=== PATIENT | male | born 1955 | race Caucasian/White ===

== ENCOUNTER 2017-01-13 05:18 | Inpatient (IN) | payer OTHER ==
[2016-12-18 14:39] VITALS: BMI 36.0
--- NOTE | 2016-12-18 15:26 | PAT Medication Instructions ---
Service Date Dec 18, 2016. Current Home Medication List Aspirin (Aspirin Ec), 81 MG PO QAM Carvedilol (Coreg), 3.125 MG PO BID Gabapentin (Neurontin), 300 MG PO TID Metformin Hcl (Glucophage), 500 MG PO BID Nitroglycerin (Nitrostat), 0.4 MG UT PRN Oxycodone/Acetaminophen 5MG/325MG (Percocet 5MG/325MG), 1-2 TABLETS PO Q6H PRN for Pain Prasugrel Hcl (Effient), 10 MG PO QAM Simvastatin (Zocor), 40 MG PO QPM Medication Instructions For Your Scheduled Surgery - Check with surgeon/diesel plant operator for instructions: Prasugrel Hcl (Effient), 10 MG PO QAM - Hold the following medications 48 hours prior to surgery: Metformin Hcl (Glucophage), 500 MG PO BID - Take the following medications the morning of surgery with a sip of water: Nitroglycerin (Nitrostat), 0.4 MG UT PRN Gabapentin (Neurontin), 300 MG PO TID Carvedilol (Coreg), 3.125 MG PO BID Aspirin (Aspirin Ec), 81 MG PO QAM (okay to continue per surgeon) Oxycodone/Acetaminophen 5MG/325MG (Percocet 5MG/325MG), 1-2 TABLETS PO Q6H PRN for Pain (okay to take up to 4 hours prior to surgery if needed) - Take the following medications as scheduled the night before surgery: Simvastatin (Zocor), 40 MG PO QPM Nitroglycerin (Nitrostat), 0.4 MG UT PRN Gabapentin (Neurontin), 300 MG PO TID Carvedilol (Coreg), 3.125 MG PO BID Oxycodone/Acetaminophen 5MG/325MG (Percocet 5MG/325MG), 1-2 TABLETS PO Q6H PRN for Pain If you have any questions please call us at [phone] (Magdalena Miranda PA-C ) or [phone] or [phone]
[2016-12-18 16:17] LABS: URINE APPEARANCE CLEAR (CLEAR); URINE BILIRUBIN NEG (NEG); URINE COLOR YELLOW; URINE NITRITE NEG (NEG); URINE PH 5.5 (4.5-7.5); URINE SPECIFIC GRAVITY 1.031 (1.000-1.030); UROBILINOGEN NEG (NEG)
[2016-12-18 16:20] LABS: MANUAL MICROSCOPIC REQUIRED? NO; REVIEW REQ? NO
--- NOTE | 2017-01-09 09:05 | HISTORY & PHYSICAL EXAMINATION ---
DATE OF ADMISSION: 01/13/2017 HISTORY OF PRESENT ILLNESS: The patient presents to our office with complaints of bilateral leg pain, right greater than left, as well as difficulty walking any distance. He reports his legs will fatigue and become very tired and painful if he stands or walks any period of time. If he stops and sits for a period of time, his symptoms resolve. He can only walk about 5 minutes before he must stop and sit down. He has trialed epidural injections with Dr. Farah who recently fell the degree of his stenosis as well as the fact that he was on a blood thinner were not worth attempting an injection. He was, therefore, sent to our office for a surgical opinion. He denies bowel or bladder dysfunction. He does have a history of vascular disease, did have ultrasounds of bilateral legs, and was told there were no issues with this. MEDICAL HISTORY: Significant for peripheral vascular disease, pulmonary nodule, neurogenic claudication, [place] with cardiac stenting 12/2015, type 2 diabetes, hyperlipidemia, COPD, asthma, psoriasis and cough. ALLERGIES: INCLUDE IVP DYE, LISINOPRIL AND ATORVASTATIN. MEDICATIONS: Include Carvedilol 3.125 mg twice a day, metformin 500 mg twice a day, Effient 10 mg a day, aspirin 81 mg a day, simvastatin 40 mg a day, oxycodone 5/325 q. 6 hours p.r.n., gabapentin 300 mg at bedtime, Nitrostat. 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 He is still working. He is . He is a former smoker. Alcohol not listed. FAMILY HISTORY: Noncontributory. REVIEW OF SYSTEMS: Significant for bilateral leg weakness and pain and back pain as well as shortness of breath. PHYSICAL EXAMINATION: HEENT: Speech appropriate. CARDIOPULMONARY: No gross abnormalities. ABDOMEN: Soft, nondistended. GENITOURINARY: Deferred. NEUROLOGIC: Cranial nerves II-XII grossly intact. MUSCULOSKELETAL: He moves slowly around the room, favoring the right side. He has 4 to 4+/5 right anterior tibialis, otherwise strength is intact. Internal rotation of the left and right hip causes groin pain. Gait is stable. No evidence of ankle clonus. ASSESSMENT: Severe spinal stenosis L3-L4, L4-L5. PLAN: At this point in time, he is noting more and more difficulty with walking. He is interested in pursuing surgical intervention. Surgery would require lumbar decompression with instrumented fusion L3-L4, L4-L5, and L5-S1. Risks, benefits, pros, cons and alternatives were outlined in detail. The patient would like to proceed with the above-mentioned surgical planning.
[~2017-01-13] VITALS: Ht 170.2 cm; Wt 105.0 kg
[2017-01-13] VITALS (11 sets, daily range): BP systolic 111–168; BP diastolic 71–94; PULSE 60–75; TEMP 35.9–36.6; O2SAT 94–99; Ht 170.2 cm; Wt 105.0 kg
[~2017-01-13 05:18] MED LIST: ASPI81TA28 PO; CARV3.122 PO; GABA-113 PO; GLC/500 PO; NTRGSL/4 UT; OXYC-57 PO; PRAS1TAB6 PO; SIMV40TA2 PO
[2017-01-13] MEDS ORDERED: LACTATED RINGER'S 1000ML IV SCH (06:00)
[2017-01-13] MEDS ORDERED: LACTATED RINGER'S 1000ML 1,000 ML IV SCH (06:00)
[2017-01-13] MEDS ORDERED: CEFAZOLIN 2000 MG/60 ML D5W 60 ML IV SCH (06:00)
[2017-01-13] MEDS ORDERED: FENTANYL CITRATE INJ 50 MCG/1 ML 2 ML VIAL ONE ×3 (06:38→08:57)
[2017-01-13] MEDS ORDERED: MIDAZOLAM HCL 1 MG/ML 2ML VIAL ONE (06:38)
[2017-01-13] MEDS ORDERED: BACITRACIN 50000 UNIT VIAL ONE (06:57)
[2017-01-13] MEDS ORDERED: BUPIVACAINE/EPINEPHRINE 0.5% MPF 1:200,000 30 ML VIAL ONE (06:57)
[2017-01-13] MEDS ORDERED: SODIUM CHLORIDE 0.9% PF 50 ML VIAL ONE (06:57)
--- NOTE | 2017-01-13 07:22 | History & Physical Bridge Note ---
H&P Re-Evaluation Bridge Note: I have examined the patient, reviewed the History & Physical and in the interval since the performance of the History & Physical I have noted the following changes of clinical significance: No changes noted
[2017-01-13] MEDS ORDERED: HYDROmorphone INJ 1 MG/ML SYR IV PRN (07:45)
[2017-01-13] MEDS ORDERED: ATROPINE SULFATE 0.1 MG/ML 5ML SYR IV PRN (07:45)
[2017-01-13] MEDS ORDERED: FENTANYL CITRATE INJ 50 MCG/1 ML 2 ML VIAL IV PRN (07:45)
[2017-01-13] MEDS ORDERED: EpHEDrine SULFATE INJ 50 MG/ML AMP IV PRN (07:45)
[2017-01-13] MEDS ORDERED: ONDANSETRON INJ 2 MG/ML 2 ML VIAL IV PRN ×2 (07:45→09:45)
[2017-01-13] MEDS ORDERED: HYDROmorphone INJ 2 MG/ML SYR/VIAL ONE ×2 (08:08→09:36)
[2017-01-13] MEDS ORDERED: ROCURONIUM BROMIDE 10 MG/ML 5 ML VIAL ONE (08:23)
[2017-01-13] MEDS ORDERED: LIDOCAINE HCL 2% 2 ML VIAL (20MG/ML) ONE (08:23)
[2017-01-13] MEDS ORDERED: PHENYLEPHRINE 100MCG/ML 5ML SYR ONE (08:23)
[2017-01-13] MEDS ORDERED: DEXAMETHASONE SOD INJ 4 MG/ML VIAL ONE (08:23)
[2017-01-13] MEDS ORDERED: PROPOFOL IV EMULSION 10 MG/ML 20 ML VIAL IV ONE (08:23)
[2017-01-13] MEDS ORDERED: FLOSEAL HEMOSTATIC MATRIX 10ML TOP ONE (09:27)
[2017-01-13] MEDS ORDERED: SODIUM CHLORIDE 0.9% 1000ML 1,000 ML IV SCH (09:32)
--- NOTE | 2017-01-13 09:32 | [facility] Post Operative Brief Note ---
Immediate Operative Summary Operative Date Jan 13, 2017. Pre-Operative Diagnosis severe spinal stenosis L3-4, L4-5 Post-Operative Diagnosis severe spinal stenosis L3-4, L4-5 Procedure(s) Performed L3-L5 Lumbar Laminectomy, Decompression; L3-S1 Posterolateral Fusion with Instrumentation; Interbody Fusion with application of Interbody Cage L5-S1; Bone Morphogenetic Protein; Application of Taylor Allograft Surgeon Dr. Marques Kumar Comprehensive Ophthalmologist Surgeon(s) Yana Vega PA-C Estimated Blood Loss 350ML Findings stenosis Specimens none per surgeon Dr. Hema Kumar
--- NOTE | 2017-01-13 09:37 | DIAGNOSTIC IMAGING REPORT ---
LUMBAR SPINE, INTRAOPERATIVE FLUOROSCOPY HISTORY: L3-S1 decompression and fusion. FLUOROSCOPY TIME: 20 seconds. FINDINGS: Intraoperative fluoroscopy was provided for the lumbar spine. 2 fluoroscopic spot images were obtained. Posterior decompression and fusion from L3 through S1 with pedicle screws and rods. The hardware appears intact. IMPRESSION: Fluoroscopy provided for a L3-S1 posterior decompression and fusion. Electronically signed by: Jason Moreno M.D. 01/13/2017 9:36 AM Dictated Date/Time: 01/13/2017 9:35 AM
[2017-01-13] MEDS ORDERED: NEOSTIGMINE METHYLSULFATE 1 MG/ML 10ML VIAL ONE (09:39)
[2017-01-13] MEDS ORDERED: EpHEDrine SULFATE 50MG/5ML SYR ONE (09:39)
[2017-01-13] MEDS ORDERED: GLYCOPYRROLATE INJ 0.2 MG/ML VIAL ONE (09:39)
[2017-01-13] MEDS ORDERED: ONDANSETRON INJ 2 MG/ML 2 ML VIAL ONE (09:39)
[2017-01-13] MEDS ORDERED: NITROGLYCERIN 0.4 MG SL PER TAB CHARGE UT SCH (09:45)
[2017-01-13] MEDS ORDERED: LORAZEPAM INJ 0.5 MG in SYRINGE 0 ML IV PRN (09:45)
[2017-01-13] MEDS ORDERED: DC PCA PRN (09:45)
[2017-01-13] MEDS ORDERED: BISACODYL 10 MG SUPP PR PRN (09:45)
[2017-01-13] MEDS ORDERED: MAGNESIUM HYDROXIDE SUSP 30 ML UDC PO PRN (09:45)
[2017-01-13] MEDS ORDERED: FAMOTIDINE 20 MG TAB PO PRN (09:45)
[2017-01-13] MEDS ORDERED: SOD PHOSPHATE/SOD BIPHOSPHATE ENEMA 132 ML BTL PR PRN (09:45)
[2017-01-13] MEDS ORDERED: DO NOT ADMINISTER PNEUMOCOCCAL VACCINE PRN ×2 (09:45)
[2017-01-13] MEDS ORDERED: METOCLOPRAMIDE HCL INJ 5 MG/ML 2 ML VIAL IV PRN (09:45)
[2017-01-13] MEDS ORDERED: ALUMINUM/MAGNESIUM SUSP 30 ML UDC PO PRN (09:45)
[2017-01-13] MEDS ORDERED: ACETAMINOPHEN IV 100 ML IV PRN (09:45)
[2017-01-13] MEDS ORDERED: hydrOXYzine HCL 25 MG TAB PO PRN (09:45)
[2017-01-13] MEDS ORDERED: PROMETHAZINE HCL INJ 12.5 MG in SODIUM CHLORIDE 0.9% 50ML 50 ML IV PRN (09:45)
[2017-01-13] MEDS ORDERED: NALOXONE HCL 0.4 MG/1 ML VIAL/CARP IV PRN (09:45)
[2017-01-13] MEDS ORDERED: DO NOT ADMINISTER FLU VACCINE PRN ×3 (09:45)
[2017-01-13] MEDS ORDERED: HYDROmorphone HCL 0.5MG/ML 50 ML CASSETTE ONE (09:50)
[2017-01-13] MEDS ORDERED: PHARMACY GLYCEMIC MGMT CONSULT PRN (10:36)
--- NOTE | 2017-01-13 10:43 | Anesthesiology Progress Note ---
Anesthesia Post Op Note Date & Time Jan 13, 2017 at 10:43 Vital Signs Pain Intensity: 0 Vital Signs Past 12 Hours Date Time Temp Pulse Resp B/P Pulse Ox O2 Delivery O2 Flow Rate FiO2 01/13/17 10:30 36.6 62 16 145/83 98 Nasal Cannula 4 01/13/17 10:20 60 16 143/83 97 Nasal Cannula 4 01/13/17 10:10 57 16 149/79 100 Mask 10 01/13/17 10:00 60 16 156/89 99 Mask 10 01/13/17 09:52 36.8 83 16 155/76 96 10 01/13/17 05:44 36.6 63 20 168/94 96 Room Air Notes Mental Status: alert / awake / arousable, participated in evaluation Pt Amnestic to Procedure: Yes Nausea / Vomiting: adequately controlled Pain: adequately controlled Airway Patency, RR, SpO2: stable & adequate BP & HR: stable & adequate Hydration State: stable & adequate Anesthetic Complications: no major complications apparent
--- NOTE | 2017-01-13 11:35 | Pharmacy Progress Note ---
Glycemic Control Intl Consult Date of Service Jan 13, 2017. Scope Glycemic Pharmacist consulted by Dr Kumar on 01/13/17 for glycemic control and to write orders per [facility] inpatient glycemic control protocol Objective Weight (Kilograms): 105.000 Accuchecks BSG (last 24hrs): Test 01/13/17 05:39 01/13/17 09:57 Bedside Glucose 109 mg/dl (70-99) 145 mg/dl (70-99) Recent Pertinent Medications Outpatient Anti-diabetic Regimen: * Metformin 500 mg PO BIDM * A1c unknown Risk Factors for Insulin Resistance: * Steroids * Recent Surgery * Diet Assessment & Plan ASSESSMENT: * 61 yo diabetic M admitted with spinal stenosis, POD #0 * No recent A1c available to assess outpatient glycemic control; only on Metformin per medication records * Expect BSGs to rise due to stress of surgery and dexamethasone IV dosing (12 mg IV intraop + 3 post-op doses) * Initiate wt based Novolog (stress of 2) * Add additional check overnight due to possible steroid-induced hyperglycemia * Give Lantus X 1 if BSG >180 mg/dL * ADA & AACE recommend a goal blood sugar range 140-180 mg/dl for the majority of critically ill & non-critically ill patients. However, more stringent targets may be selected in individual cases. To facilitate optimal wound healing , tighten goal range to 110-140 mg/dL. PLAN FOR INPATIENT GLYCEMIC CONTROL: * Hold outpatient oral diabetes medications * Basal insulin with LANTUS SQ 10 units IF BSG >180 mg/dL * Correctional Insulin with NOVOLOG per scale ACHS PLUS 0200 check * Goal Range: Low 110 mg/dL - High 140 mg/dL * Correction Factor: 25 mg/dL/unit * Nutritional / Prandial insulin per carb ratio of 1 unit per 9 grams CHO consumed * A1c added to AM labs * Please note that the plan above was derived based on current level of insulin resistance and hospital stress. These recommendations are appropriate for inpatient admission only. Plan of care upon discharge will need to be reassessed to avoid potential outpatient hypo/hyperglycemia. Thank you.
--- NOTE | 2017-01-13 11:40 | OPERATIVE REPORT ---
DATE OF OPERATION: 01/13/2017 PREOPERATIVE DIAGNOSIS: Spinal stenosis. POSTOPERATIVE DIAGNOSIS: Same. PROCEDURES PERFORMED: 1. Revision decompression, medial facetectomy and foraminotomy L2-3, L3-4, L4-5, L5-S1. 2. Posterior spinal fusion L3-4, L4-5, L5-S1. 3. Placement posterior segmental instrumentation using Orthros rods and screws as well as a crosslink L3-4, L4-5, L5-S1. 4. Interbody fusion L5-S1. 5. Placement of PEEK cage 14 x 26 at L5-S1. 6. Placement of locally harvested morcellized autograft posterior gutters. 7. Placement of Infuse collagen sponge combined with Mastergraft in Taylor bone grafting in interbody space. SURGEON: Dr. Marques Kumar. ANALYTICAL STATISTICIAN: Yana Vega PA-C. Due to the complex nature of the procedure, the entire surgery was performed with the data assistant of JATIN Paris. The assistant manager pt, under direct supervision, was involved in the actual performance of all aspects of the surgical procedure including hemostasis, tissue retraction and incision, instrument management, patient positioning, and wound closure. ANESTHESIA: General. DISPOSITION: The patient awakened and taken to PACU in stable condition. HISTORY OF PATIENT'S PROBLEMS: A 61-year-old male who presents with above-mentioned diagnosis. After failing an extensive course of nonoperative care, elected to undergo the above-mentioned procedure. Risks, benefits, pros, cons, and alternatives were outlined in detail preoperatively. DESCRIPTION OF PROCEDURE: The patient was met preoperatively, case discussed and all questions were addressed. At that point, the patient was taken back to operative suite and after undergoing successful general endotracheal intubation by department of anesthesia, was placed in prone position on Fritz table atop the Arpan frame. All bony prominences were well padded and the eyes were inspected to ensure there was no external pressure placed upon them. At this point, lumbar spine was prepped and draped in normal sterile fashion. Sharp dissection with the assistance of Bovie cautery performed down to and exposing the lamina and transverse processes of L3, L4, L5 and sacral ala bilaterally. From a caudal to cephalad fashion, a revision complete laminectomy of L5, L4, L3 and partial laminectomy of L2 was performed addressing severe lateral recess foraminal disease. Pedicle screws then placed in L3, L4, L5 and S1 levels bilaterally with assistance of fluoroscopy and appropriate size jennifer provisionally placed. Through a transforaminal approach on the right, a complete discectomy of L5-S1 was performed, endplates curetted to subcortical bleeding bone and a 14 x 26 mm PEEK cage filled with Taylor bone grafting tapped into position. The rods were then compressed, locked into final position bilaterally, crosslink locked into position. The transverse processes of L3, L4, L5 and sacral ala burred to subcortical bleeding bone. Infuse collagen sponge combined with Mastergraft and locally harvested morcellized autograft was placed in the posterior gutters. A 7 flat LOLA drain was inserted. Incision was closed with #1 Vicryl in the fascia, 2-0 Vicryl subcutaneously, 4-0 Monocryl for final skin closure. Steri-Strips and sterile dressing was placed. The patient was awakened and taken to PACU in stable condition. I attest to the content of the Intraoperative Record and any orders documented therein. Any exceptio ns are noted below.
[2017-01-13] MEDS ORDERED: GLUCOSE 10 TABS/TUBE PO PRN (11:45)
[2017-01-13] MEDS ORDERED: GLUCAGON FOR INJ 1 MG VIAL SQ PRN (11:45)
[2017-01-13] MEDS ORDERED: GLUCOSE 40% GEL 15 GM TUBE PO PRN (11:45)
[2017-01-13] MEDS ORDERED: DEXTROSE 50% 50 ML SYR IV PRN (11:45)
[2017-01-13] MEDS: LACTATED RINGER'S 1000ML 1,000 ML IV SCH ×3 (12:38→22:32)
[2017-01-13] MEDS: INSULIN ASPART 100 UNITS/ML 3 ML PEN SC SCH ×3 (12:58→21:50)
[2017-01-13] MEDS: GABAPENTIN 300 MG CAP PO SCH ×2 (14:07→21:29)
[2017-01-13] MEDS: HYDROmorphone HCL 0.5MG/ML 50 ML CASSETTE IV PRN ×2 (15:02→22:54)
[2017-01-13] MEDS: CEFAZOLIN IV 2,000 MG in DEXTROSE 5% 50ML 50 ML IV SCH ×2 (15:42→23:42)
[2017-01-13] MEDS: DEXAMETHASONE INJ 6 MG in SYRINGE 0 ML IV SCH ×2 (15:42→23:42)
[2017-01-13] MEDS ORDERED: RXC5 PO (16:42)
--- NOTE | 2017-01-13 16:42 | Discharge Instructions ---
Discharge Instructions Date of Service Jan 13, 2017. Admission Reason for Admission: Spinal Stenosis Discharge Discharge Diagnosis / Problem: stenosis Discharge Goals Goal(s): Improve function Activity Recommendations Activity Limitations: per Instructions/Follow-up section . Instructions / Follow-Up Instructions / Follow-Up ACTIVITY RECOMMENDATIONS: SELF CARE INSTRUCTIONS AFTER THORACIC/LUMBAR FUSIONS 1. You may walk to your tolerance. It is good exercise for your legs and back. Expect some back and intermittent leg aches and pains. 2. You may perform "counter-top" level activities (make a sandwich, jamshid with a project, etc.). 3. No bending or lifting of more than 10 pounds or back twisting of any nature (roll like a log when turning in bed). 4. You may ride in a car for 20-30 minutes at a time. No driving until after your first visit with your doctor. 5. Frequent changes of position and restricting sitting to 30 minutes at a time will help limit the amount of back spasms and stiffness you may experience. 6. You may discontinue the use of ambulatory aids (cane, crutches, etc.) once your strength and confidence allow. 7. You may chlorinator the shower and let water strike your incision when you arrive home at least once daily. Do not take a tub bath, sit in a hot tub or go into a swimming pool until after your first recheck in the office. SPECIAL CARE INSTRUCTIONS: VERY IMPORTANT TO READ AND REVIEW A. Your surgical incision has been closed with a cosmetic suture under the skin that will dissolve in about 6 weeks. In 14 days, you can use a pair of clean scissors and cut the suture that is left outside of the skin at the ends of your incision. 1. The small skin tapes can be removed 7 days after surgery if they have not fallen off by that point. 2. You may keep the wound open to air as much as possible to promote healing after post-op day number 5 unless told otherwise by your doctor. 3. If you think the wound looks like it is becoming infected (redness or worsening drainage) and/or you are experiencing fever, chill or worsening back pain and muscle spasms, contact the office so that we may evaluate you as soon as possible. B. Complications are uncommon, but please contact us if you have any signs or symptoms of: 1. wound infection (fever higher than 102.5 degrees F, redness, separation of wound, drainage, or increasing pain from the incision) 2. blood clots in legs (pain, swelling, redness and warmth in legs) 3. urinary tract infection (fever higher than 102.5 degrees F, burning upon urination or increased frequency of urination) 4. nerve problems (inability to walk on your toes or heels, numbness, loss of bowel or bladder control) 5. any other symptoms that concern you C. Please call the office at if you have any concerns or questions about your operation or recovery. D. No smoking! Smoking drastically decreases the chance of a solid fusion. E. Do not take any anti-inflammatory medications (Indocin, Advil, Motrin, Aspirin, Naprosyn, etc.) as these may inhibit the chance of a solid fusion. Tylenol is okay to take for pain. MANAGING PAIN AFTER SPINAL SURGERY 1. Narcotic medication is intended for short-term use and will be provided for surgical pain. Surgical pain usually lasts for a period of 4-6 weeks. Narcotic medication includes Percocet, Vicodin, Darvocet, Tylenol #3 or Lortab. 2. Longer-term pain is more appropriately treated with non-narcotic medication such as Tylenol ES. 3. Muscle spasm is not appropriately treated with narcotics. Muscle relaxers such as Soma, Flexeril or Skelaxin can be used along with Tylenol ES. 4. Remember that we all live with some "aches and pains". This is not unusual or uncommon after an injury or as we get older. a. Back pain is expected and may include muscle spasms for 4 to 6 weeks after surgery. The pain should gradually improve. If the pain worsens for no apparent reason, please contact the office. b. Intermittent leg pain may also be experienced and should not be concerned about unless it worsens for no apparent reason. If so, please contact the office. 5. We will provide appropriate medication within the normal guidelines of their prescribed use. We will also be very cautious and aware of potential abuse and extended duration of patients' medication needs. a. Pain medications are for your comfort and to assist with sleep and rest so that the tissue can heal. They are not provided in order to return to normal activity and should not be used through the day. To do so or worsening pain at night can result from ongoing tissue damage and development of tolerance to the prescribed medicine. 6. Please allow 2-3 days to process refills. Prescriptions will not be mailed but must be picked up at the office. FOLLOW UP VISIT: Keep your scheduled follow-up appointment. Any questions, please call the office at . Current Hospital Diet Patient's current hospital diet: Diabetes Type 2 Diet Discharge Diet Recommended Diet: Regular Diet Procedures Procedures Performed: L3-L5 Lumbar Laminectomy, Decompression; L3-S1 Posterolateral Fusion with Instrumentation; Interbody Fusion with application of Interbody Cage L5-S1; Bone Morphogenetic Protein; Application of Taylor Allograft Pending Studies Studies pending at discharge: no Medical Emergencies . Who to Call and When: Medical Emergencies: If at any time you feel your situation is an emergency, please call 911 immediately. . Non-Emergent Contact Non-Emergency issues call your: Primary Care Provider . "Provider Documentation" section prepared by Marques Kumar. VTE Core Measure Inpt VTE Proph given/why not?: Nancy Aggarwal, SCD's
[2017-01-13] MEDS: CARVEDILOL 3.125 MG TAB PO SCH (21:30)
[2017-01-13] MEDS: DOCUSATE SODIUM/SENNA 50/8.6MG TAB PO SCH (21:30)
[2017-01-13] MEDS: SIMVASTATIN 40 MG TAB PO SCH (22:12)
[2017-01-14] MEDS ORDERED: INSULIN ASPART 100 UNITS/ML 3 ML PEN SC SCH (02:00)
[2017-01-14 03:40] VITALS: BP 134/71; PULSE 60; TEMP 36.6; O2SAT 96
[2017-01-14] MEDS: LACTATED RINGER'S 1000ML 1,000 ML IV SCH (05:32)
[2017-01-14] MEDS ORDERED: NALOXONE HCL 0.4 MG/1 ML VIAL/CARP IV PRN (06:00)
[2017-01-14] MEDS ORDERED: DC PCA ONE (06:00)
[2017-01-14] MEDS ORDERED: NURSING DECISION MEDICATION ORDER SCH (06:00)
[2017-01-14] MEDS ORDERED: HYDROmorphone INJ 0.5 MG/0.5 ML SYR IV PRN (06:00)
[2017-01-14] MEDS ORDERED: HYDROmorphone INJ 1 MG/ML SYR IV PRN (06:00)
[2017-01-14 06:34] LABS: BASO % 0.1 %; BASO ABS # 0.01 K/uL (0-0.2); COMPLETE YES; HEMATOCRIT 34.9 % (42-52); IG% 0.4 %; LYMPH % 6.2 %; LYMPH ABS # 0.91 K/uL (1.2-3.4); MEAN CELL VOLUME 86.6 fL (80-100); MEAN CORPUSCULAR HGB CONC 34.7 g/dl (32-36); MEAN PLATELET VOLUME 9.6 fL (7.4-10.4); MONO % 8.3 %; PLATELET COUNT 179 K/uL (130-400); RED BLOOD COUNT 4.03 M/uL (4.7-6.1); WHITE BLOOD COUNT 14.64 K/uL (4.8-10.8)
[2017-01-14 06:57] VITALS: BP 115/71; PULSE 60; TEMP 36.6; O2SAT 96
[2017-01-14 07:03] LABS: BUN/CREATININE RATIO 15.8 (10-20); CALCIUM 8.4 mg/dl (8.5-10.1); CREATININE 0.89 mg/dl (0.60-1.40); POTASSIUM 4.3 mmol/L (3.5-5.1)
[2017-01-14] MEDS: OXYCODONE HCL IR 5 MG TAB (IMMEDIATE RELEASE) PO PRN ×4 (07:32→23:10)
[2017-01-14] MEDS: DEXAMETHASONE INJ 6 MG in SYRINGE 0 ML IV SCH (07:36)
--- NOTE | 2017-01-14 07:51 | Anesthesiology Progress Note ---
Anesthesia Post Op Note Date & Time Jan 14, 2017 at 07:51 Vital Signs Pain Intensity: 8.0 Vital Signs Past 12 Hours Date Time Temp Pulse Resp B/P Pulse Ox O2 Delivery O2 Flow Rate FiO2 01/14/17 06:57 36.6 60 17 115/71 96 Room Air 01/14/17 03:40 36.6 60 18 134/71 96 Room Air 01/13/17 23:50 36.3 60 16 136/78 94 Room Air 01/13/17 23:30 95 Room Air 01/13/17 21:00 74 111/71 Notes Mental Status: alert / awake / arousable, participated in evaluation Pt Amnestic to Procedure: Yes Nausea / Vomiting: adequately controlled Pain: adequately controlled, see Notes Airway Patency, RR, SpO2: stable & adequate BP & HR: stable & adequate Hydration State: stable & adequate Anesthetic Complications: no major complications apparent Just had requested po analgesic, RN bringing.
[2017-01-14] MEDS: CARVEDILOL 3.125 MG TAB PO SCH ×2 (08:40→21:10)
[2017-01-14] MEDS: GABAPENTIN 300 MG CAP PO SCH ×3 (08:40→21:10)
[2017-01-14] MEDS: ASPIRIN 81 MG ECTAB PO SCH (08:40)
[2017-01-14] MEDS: LORAZEPAM 0.5 MG TAB PO PRN (08:44)
[2017-01-14] MEDS: ACETAMINOPHEN 500 MG TAB PO PRN (08:44)
[2017-01-14] MEDS: INSULIN ASPART 100 UNITS/ML 3 ML PEN SC SCH ×4 (08:48→21:14)
--- NOTE | 2017-01-14 11:08 | Pharmacy Progress Note ---
Glycemic Control: Progress Nt Date of Service Jan 14, 2017. Scope Glycemic Pharmacist consulted by Dr Kumar on 01/13/17 for glycemic control and to write orders per [facility] inpatient glycemic control protocol. Objective Accuchecks BSG (last 24hrs): Test 01/13/17 11:50 01/13/17 16:47 01/13/17 20:45 01/14/17 01:51 Bedside Glucose 146 mg/dl (70-99) 174 mg/dl (70-99) 154 mg/dl (70-99) 167 mg/dl (70-99) Test 01/14/17 06:12 01/14/17 07:55 Random Glucose 156 mg/dl (70-99) Bedside Glucose 174 mg/dl (70-99) Laboratory Data (last 24hrs) Test 01/14/17 06:12 Anion Gap 5.0 mmol/L BUN/Creatinine Ratio 15.8 Blood Urea Nitrogen 14 mg/dl Creatinine 0.89 mg/dl Potassium Level 4.3 mmol/L Sodium Level 139 mmol/L White Blood Count 14.64 K/uL Red Blood Count 4.03 M/uL Hemoglobin 12.1 g/dL Hematocrit 34.9 % Mean Corpuscular Volume 86.6 fL Mean Corpuscular Hemoglobin 30.0 pg Mean Corpuscular Hemoglobin Concent 34.7 g/dl Platelet Count 179 K/uL Mean Platelet Volume 9.6 fL Neutrophils (%) (Auto) 85.0 % Lymphocytes (%) (Auto) 6.2 % Monocytes (%) (Auto) 8.3 % Eosinophils (%) (Auto) 0.0 % Basophils (%) (Auto) 0.1 % Neutrophils # (Auto) 12.45 K/uL Lymphocytes # (Auto) 0.91 K/uL Monocytes # (Auto) 1.21 K/uL Eosinophils # (Auto) 0.00 K/uL Basophils # (Auto) 0.01 K/uL Recent Pertinent Medications Outpatient Anti-diabetic Regimen: * Metformin 500 mg PO BIDM * A1c unknown Risk Factors for Insulin Resistance: * Steroids * Recent Surgery * Diet Assessment & Plan ASSESSMENT: 01/13/17 * 61 yo diabetic M admitted with spinal stenosis, POD #0 * No recent A1c available to assess outpatient glycemic control; only on Metformin per medication records * Expect BSGs to rise due to stress of surgery and dexamethasone IV dosing (12 mg IV intraop + 3 post-op doses) * Initiate wt based Novolog (stress of 2) * Add additional check overnight due to possible steroid-induced hyperglycemia * Give Lantus X 1 if BSG >180 mg/dL * ADA & AACE recommend a goal blood sugar range 140-180 mg/dl for the majority of critically ill & non-critically ill patients. However, more stringent targets may be selected in individual cases. To facilitate optimal wound healing , tighten goal range to 110-140 mg/dL. 01/14/17 * A1c with AM labs indicative of good glycemic control * Fasting BSG this AM 174 mg/dL * Patient did not require a Lantus dose even with steroids on board * I expect BSGs to continue to trend towards goal as steroid effects dissipate * Last dexamethasone dose scheduled for 0800 * Continue current Novolog coverage for breakfast, loosen starting with lunch PLAN FOR INPATIENT GLYCEMIC CONTROL: * Hold outpatient oral diabetes medications * Loosen Correctional Insulin with NOVOLOG per scale ACHS * Goal Range: Low 110 mg/dL - High 140 mg/dL * Correction Factor: 30 mg/dL/unit * Nutritional / Prandial insulin per carb ratio of 1 unit per 12 grams CHO consumed * A1c added to D/C instructions * Please note that the plan above was derived based on current level of insulin resistance and hospital stress. These recommendations are appropriate for inpatient admission only. Plan of care upon discharge will need to be reassessed to avoid potential outpatient hypo/hyperglycemia. Thank you.
[2017-01-14 11:58] LABS: ESTIMATED AVERAGE GLUCOSE 128 mg/dl; HA1C FLAG Normal (Normal)
--- NOTE | 2017-01-14 12:50 | PROGRESS NOTE ---
DATE: 01/14/2017 Postop day 1. Back pain controlled. Leg pain improved. Vital signs stable. T-max 36.6. LOLA drained 280 mL last night. Hematocrit this a.m. is 34.9. On exam, the patient is in chair at bedside. Demonstrates good strength to testing. Appears comfortable. ASSESSMENT: Status post lumbar decompression and fusion. PLAN: At this time, continue physical therapy, advance his bowel regimen and anticipate home possibly .
[2017-01-14 14:53] VITALS: BP 138/79; PULSE 67; TEMP 36.6; O2SAT 96
[2017-01-14 21:00] VITALS: BP 154/77; PULSE 65
[2017-01-14] MEDS: SIMVASTATIN 40 MG TAB PO SCH (21:10)
[2017-01-14] MEDS: DOCUSATE SODIUM/SENNA 50/8.6MG TAB PO SCH (21:10)
[2017-01-14 23:42] VITALS: BP 124/73; PULSE 66; TEMP 36.7; O2SAT 96
[2017-01-15] VITALS (7 sets, daily range): BP systolic 118–134; BP diastolic 69–83; PULSE 59–69; TEMP 36.4–36.9; O2SAT 96–98
[2017-01-15] MEDS: OXYCODONE HCL IR 5 MG TAB (IMMEDIATE RELEASE) PO PRN ×5 (03:31→21:07)
[2017-01-15] MEDS: POLYETHYLENE (MIRALAX) 17 GM PACK PO SCH ×3 (05:29→18:21)
[2017-01-15] MEDS: GABAPENTIN 300 MG CAP PO SCH ×3 (07:30→20:44)
[2017-01-15] MEDS: CARVEDILOL 3.125 MG TAB PO SCH ×2 (07:30→20:43)
[2017-01-15] MEDS: ASPIRIN 81 MG ECTAB PO SCH (07:30)
[2017-01-15] MEDS: LORAZEPAM 0.5 MG TAB PO PRN ×2 (07:30→23:54)
[2017-01-15] MEDS: INSULIN ASPART 100 UNITS/ML 3 ML PEN SC SCH ×4 (07:33→20:46)
--- NOTE | 2017-01-15 11:57 | Pharmacy Progress Note ---
Glycemic Control: Progress Nt Date of Service Jan 15, 2017. Scope Glycemic Pharmacist consulted by Dr Kumar on 01/13/17 for glycemic control and to write orders per [facility] inpatient glycemic control protocol. Objective Accuchecks BSG (last 24hrs): Test 01/14/17 12:06 01/14/17 16:35 01/14/17 20:38 01/15/17 06:52 Bedside Glucose 173 mg/dl (70-99) 167 mg/dl (70-99) 179 mg/dl (70-99) 169 mg/dl (70-99) Test 01/15/17 11:09 Bedside Glucose 116 mg/dl (70-99) HbA1c: Test 01/14/17 06:12 Hemoglobin A1c 6.1 % (4.5-5.6) H Recent Pertinent Medications Outpatient Anti-diabetic Regimen: * Metformin 500mg PO BIDM The patient is currently receiving: * Basal insulin: N/A, non indicated * Correctional Insulin: Novolog Correction per scale ACHS Goal Range: Low 110 mg/dL - High 140 mg/dL Correction Factor: 30 mg/dL/unit * Prandial insulin: Per carb ratio of 1 unit per 12 grams CHO consumed * Oral Agents: On hold post-op Risk Factors for Insulin Resistance: * Steroids * Recent Surgery * Diet Assessment & Plan ASSESSMENT: * 61yo T2DM with adequate degree of outpatient control per recent A1c * Reasonable for patient to resume previous outpatient regimen at discharge ( metformin) * Metformin held post-op and pt initiated on SQ insulin regimen. Reasonable to resume metformin at this time d/t: * Pt is tolerating PO * Renal function is stable and at baseline * Anticipate d/c tomorrow * ADA & AACE recommend a goal blood sugar range 140-180 mg/dl for the majority of critically ill & non-critically ill patients. However, more stringent targets may be selected in individual cases. Will utilize more stringent goal range of 110-140mg/dl for a well controlled diabetic and to facilitate healing post-operatively. PLAN FOR INPATIENT GLYCEMIC CONTROL: * Resume outpatient oral diabetes medication- metformin 500mg PO BIDM * Adjust NOVOLOG per scale ACHS or Q6hrs while NPO * Goal Range: Low 110 mg/dL - High 140 mg/dL * Correction Factor: 30 mg/dL/unit * Nutritional / Prandial insulin per carb ratio of 1 unit per 12 grams CHO consumed --> d/c CR when metformin resumed * Please note that the plan above was derived based on current level of insulin resistance and hospital stress. These recommendations are appropriate for inpatient admission only. Plan of care upon discharge will need to be reassessed to avoid potential outpatient hypo/hyperglycemia. Thank you.
[2017-01-15] MEDS: ACETAMINOPHEN 500 MG TAB PO PRN ×2 (12:41→23:54)
[2017-01-15] MEDS ORDERED: KETOROLAC TROMETHAMINE 30 MG/ML VIAL IV PRN (12:45)
--- NOTE | 2017-01-15 13:55 | PROGRESS NOTE ---
DATE: 01/15/2017 SUBJECTIVE: Postop day #2. Back pain is controlled. Leg pain improved. Vital signs stable. T-max 36.9. LOLA drained 10 mL. OBJECTIVE: On exam, the patient is in chair at bedside. Demonstrates good strength to testing and is comfortable. ASSESSMENT: Status post multilevel lumbar decompression and fusion. PLAN: At this time, will continue to advance his bowel regimen and physical therapy and anticipate discharge tomorrow. The patient understands and agrees.
[2017-01-15] MEDS: METFORMIN HCL 500 MG TAB PO SCH (18:21)
[2017-01-15] MEDS: DOCUSATE SODIUM/SENNA 50/8.6MG TAB PO SCH (20:44)
[2017-01-15] MEDS: SIMVASTATIN 40 MG TAB PO SCH (20:44)
[2017-01-15] MEDS ORDERED: NURSING VERBAL MED ORDER ONE (23:00)
[2017-01-16] MEDS: OXYCODONE HCL IR 5 MG TAB (IMMEDIATE RELEASE) PO PRN ×3 (02:52→14:06)
[2017-01-16] MEDS: INSULIN ASPART 100 UNITS/ML 3 ML PEN SC SCH ×2 (08:00→12:00)
[2017-01-16 08:12] VITALS: BP 122/75; PULSE 63; TEMP 36.5; O2SAT 97
[2017-01-16] MEDS: GABAPENTIN 300 MG CAP PO SCH ×2 (08:31→14:03)
[2017-01-16] MEDS: METFORMIN HCL 500 MG TAB PO SCH (08:31)
[2017-01-16] MEDS: ASPIRIN 81 MG ECTAB PO SCH (08:31)
[2017-01-16] MEDS: CARVEDILOL 3.125 MG TAB PO SCH (08:32)
[2017-01-16 09:58] VITALS: BP 148/80
[2017-01-16 10:52] VITALS: BP 122/75; PULSE 63; TEMP 36.5; O2SAT 97
--- NOTE | 2017-01-16 13:39 | DISCHARGE SUMMARY ---
DATE OF DISCHARGE: 01/16/2017. PRINCIPAL DIAGNOSIS: Spinal stenosis. HOSPITAL COURSE FOLLOWS: On 01/13/2017 the patient underwent lumbar decompression and fusion, tolerated this well and taken to the orthopedic floor postoperatively. Postop day #1, up and ambulatory, progressed to postop day #2. Postop day #3, pain improved nicely. LOLA drain decreasing well. Subsequently discharged home. Discharge orders and instructions can be found on the chart for further review.
== END 2017-01-16 14:43 | disposition home health service (06) | DRG 460 ==
LOC: ENRESERVTM → ENRESERVDT → C.ACU 05:18 → C.3E 07:30
PROVIDERS: ADMIT Orthopaedic Surgery Orthopaedic Surgery of the Spine; ATTEND Orthopaedic Surgery Orthopaedic Surgery of the Spine
PROC: 0SG1071 Fusion of 2 or more Lumbar Vertebral Joints with Autologous Tissue Substitute, Posterior Approach, Posterior Column, Open Approach (ICD-10-PCS; principal; 2017-01-13 07:45)
PROC: 0ST40ZZ Resection of Lumbosacral Disc, Open Approach (ICD-10-PCS; principal; 2017-01-13 07:45)
PROC: 0SG3071 Fusion of Lumbosacral Joint with Autologous Tissue Substitute, Posterior Approach, Posterior Column, Open Approach (ICD-10-PCS; principal; 2017-01-13 07:45)
PROC: 0SG30AJ Fusion of Lumbosacral Joint with Interbody Fusion Device, Posterior Approach, Anterior Column, Open Approach (ICD-10-PCS; principal; 2017-01-13 07:45)
PROC: 3E0V0GB Introduction of Recombinant Bone Morphogenetic Protein into Bones, Open Approach (ICD-10-PCS; principal; 2017-01-13 07:45)
PROC: 01NB0ZZ Release Lumbar Nerve, Open Approach (ICD-10-PCS; principal; 2017-01-13 07:45)
DX: M48.06 Spinal stenosis, lumbar region (principal); I73.9 Peripheral vascular disease, unspecified; I25.2 Old myocardial infarction; Z95.5 Presence of coronary angioplasty implant and graft; J44.9 Chronic obstructive pulmonary disease, unspecified; E11.9 Type 2 diabetes mellitus without complications; Z87.891 Personal history of nicotine dependence

== ENCOUNTER 2022-02-27 06:02 | Inpatient (IN) ==
--- NOTE | 2022-02-05 14:25 | PAT Medication Instructions ---
Medication Instructions Date of Service February 05, 2022 Home Medications Medication Instructions Recorded sildenafil 100 mg tablet 100 mg PO DAILY PRN #20 tab 10/05/21 tamsulosin 0.4 mg capsule 0.4 mg PO DAILY #90 cap 10/05/21 sildenafil 100 mg tablet 100 mg PO DAILY PRN tamsulosin 0.4 mg capsule 0.4 mg PO DAILY acetaminophen 500 mg tablet 1,500 mg PO Q6H PRN amlodipine 10 mg tablet 10 mg PO HS aspirin 81 mg tablet,delayed release 81 mg PO QAM budesonide-formoterol HFA 160 mcg-4.5 mcg/actuation aerosol inhaler (Symbicort) 2 puff INHALATION BID PRN carvedilol 12.5 mg tablet 12.5 mg PO HS metformin 500 mg tablet 500 - 1,000 mg PO BID methocarbamol 500 mg tablet 500 mg PO BID montelukast 10 mg tablet 10 mg PO QAM nitroglycerin 0.4 mg sublingual tablet (Nitrostat) 0.4 mg SUBLINGUAL UD PRN simvastatin 20 mg tablet 20 mg PO HS Continue as directed nitroglycerin 0.4 mg sublingual tablet (Nitrostat) 0.4 mg SUBLINGUAL UD PRN (if needed) ASK your prescriber and surgeon aspirin 81 mg tablet,delayed release 81 mg PO QAM DO NOT take the morning of surgery sildenafil 100 mg tablet 100 mg PO DAILY PRN metformin 500 mg tablet 500 - 1,000 mg PO BID methocarbamol 500 mg tablet 500 mg PO BID montelukast 10 mg tablet 10 mg PO QAM Take morning of surgery With a small sip of water, OTHERWISE NOTHING TO EAT OR DRINK AFTER MIDNIGHT: tamsulosin 0.4 mg capsule 0.4 mg PO DAILY acetaminophen 500 mg tablet 1,500 mg PO Q6H PRN (okay to take up to 4 hours prior to surgery if needed) budesonide-formoterol HFA 160 mcg-4.5 mcg/actuation aerosol inhaler (Symbicort) 2 puff INHALATION BID PRN (if needed) Take evening before surgery sildenafil 100 mg tablet 100 mg PO DAILY PRN (if needed) acetaminophen 500 mg tablet 1,500 mg PO Q6H PRN (if needed) amlodipine 10 mg tablet 10 mg PO HS budesonide-formoterol HFA 160 mcg-4.5 mcg/actuation aerosol inhaler (Symbicort) 2 puff INHALATION BID PRN (if needed) carvedilol 12.5 mg tablet 12.5 mg PO HS metformin 500 mg tablet 500 - 1,000 mg PO BID methocarbamol 500 mg tablet 500 mg PO BID simvastatin 20 mg tablet 20 mg PO HS Other Notes If you have any questions please call us at [phone] or [phone] or [phone] or [phone]
--- NOTE | 2022-02-06 13:35 | Anesthesiology Consultation ---
Date of Service February 06, 2022 Assessment & Plan (1) Encounter for pre-operative examination: - Check BSG AM DOS - COVID screening: Per assessment on 02/06: No known COVID-19 positive contacts or current COVID-19 related symptoms. Travel screen negative. Patient vaccinated. Patient was Covid positive 11/2021 > cold symptoms at time > resolved. Surgeon arranging preop COVID testing. Awaiting results. Awaiting 11/2021 Covid positive testing report ([facility]). - Awaiting surgeon-ordered cardiology preop evaluation (scheduled 02/07; Dr. English). Chart Review Chart Review: Patient seen in Pre Admission Testing Teaching & Discussion Pre-Anesthesia Teaching/Discussion Notes: Instructed NPO after midnight before surgery,except medications with 15 cc of water. Medication instructions provided according to the PAT guidelines. History Surgery Operation Date: 02/27/22 07:45 Proposed Procedures p L2-L3 Decompression Fusionm L3-S1 Hardware Removal Spinal Cord Morning - Marques Kumar DO Height/Weight Height: 5 ft 7 in Weight: 111.4 kg Allergies Allergy/AdvReac Type Severity Reaction Status Date / Time atorvastatin Allergy Unknown Per PCP Verified 02/05/22 14:25 records ibuprofen Allergy Unknown Facial Verified 02/05/22 14:25 swelling Iodinated Contrast Media Allergy Unknown Facial Verified 02/05/22 14:25 swelling lisinopril Allergy Unknown Hives Verified 02/05/22 10:44 Medications Home Medications Medication Instructions Recorded Confirmed Last Taken sildenafil 100 mg tablet 100 mg PO DAILY PRN #20 tab 10/05/21 02/05/22 Unknown tamsulosin 0.4 mg capsule 0.4 mg PO DAILY #90 cap 10/05/21 02/05/22 Unknown acetaminophen 500 mg tablet 1,500 mg PO Q6H PRN 02/05/22 02/05/22 Unknown amlodipine 10 mg tablet 10 mg PO HS 02/05/22 02/05/22 Unknown aspirin 81 mg tablet,delayed 81 mg PO QAM 02/05/22 02/05/22 Unknown release budesonide-formoterol HFA 160 2 puff INHALATION BID PRN 02/05/22 02/05/22 Unknown mcg-4.5 mcg/actuation aerosol inhaler (Symbicort) carvedilol 12.5 mg tablet 12.5 mg PO HS 02/05/22 02/05/22 Unknown metformin 500 mg tablet 500 - 1,000 mg PO BID 02/05/22 02/05/22 Unknown methocarbamol 500 mg tablet 500 mg PO BID 02/05/22 02/05/22 Unknown montelukast 10 mg tablet 10 mg PO QAM 02/05/22 02/05/22 Unknown nitroglycerin 0.4 mg sublingual 0.4 mg SUBLINGUAL UD PRN 02/05/22 02/05/22 Unknown tablet (Nitrostat) simvastatin 20 mg tablet 20 mg PO HS 02/05/22 02/05/22 Unknown Past Medical History Medical History CAD (coronary artery disease) Stents x3 (2015) Chronic back pain LE radiculopathy + right foot numbness since last back surgery Diabetes mellitus, type 2 NIDDM Erectile dysfunction Heart attack [address] English/Anthony Hiatal hernia History of COVID-19 Covid positive ([facility] [place]/early Nov 2021) > cold symptoms at time > resolved Obesity Sleep apnea CPAP (has not used in 1+ year) Temporomandibular joint disorder Right side clicking, no locking Exercise / Class Metabolic Activity III < 4 Walking/Shop/Light housework (uses cane) Past Family History Family History Father Heart disease Hypertension Grandmother Breast cancer Past Surgical History Surgical History History of ankle surgery History of back surgery History of cardiac cath Stents x3 (2015) History of colonoscopy 2018 History of facial surgery REMOVAL BENIGN MASS Past Anesthesia History No Hx of Anesthesia Complications and No Family Hx of Anesthesia Complications History of PONV No Hx of PONV and No Hx of Motion Sickness Social History Smoking Status: Former smoker Do You Dip or Chew Tobacco: No Smoking End Date: QUIT 1998 Hx Alcohol Use: No Hx Substance Use: No Review of Systems Patient denies chest pain, shortness of breath, fever, chills, cough, wheezing, palpitations. Physical Exam Vital Signs VITALS BP 132/71 P 65 TEMP 98.0 SP02 97%RA RESP 18 PHYSICAL Full cervical extension range of motion. Full TMJ range of motion. TMD 3 finger breaths Mallampati Score 3 Dentition: intact Lungs: clear throughout to auscultation Cardiac: regular rate and rhythm, no murmurs noted Spine: normal Carotid arteries: negative bruit Extremities: no edema Lab Results Anesthesia Preop Results Results Anesthesia Widget: WBC 6.64 K/uL (4.8-10.8) 02/06/22 Hgb 13.1 g/dL (14.0-18.0) L 02/06/22 Hct 38.7 % (42-52) L 02/06/22 Plt 224 K/uL (130-400) 02/06/22 Na 137 mmol/L (136-145) 02/06/22 K 4.3 mmol/L (3.5-5.1) 02/06/22 Cl 104 mmol/L (98-107) 02/06/22 CO2 25 mmol/L (21-32) 02/06/22 BUN 16 mg/dl (6-23) 02/06/22 Creat 0.88 mg/dl (0.6-1.4) 02/06/22 Glucose Level 223 mg/dl (70-99(Fasting)) H 02/06/22 PT 11.3 Seconds (9.0-12.0) 02/06/22 PTT 26.9 Seconds (21.0-31.0) 02/06/22 INR 1.1 (0.9-1.1) 02/06/22 HA1c 7.5 % (4.5-5.6) H 02/06/22 Urine Color Yellow 02/06/22 Urine Appearance Clear (Clear) 02/06/22 Urine pH 5.0 (4.5-7.5) 02/06/22 Urine Specific [place] 1.025 (1.000-1.030) 02/06/22 Urine Protein Negative (Negative) 02/06/22 Urine Glucose (UA) Negative (Negative) 02/06/22 Urine Ketones Negative (Negative) 02/06/22 Urine Blood Negative (Negative) 02/06/22 Urine Nitrite Negative (Negative) 02/06/22 Urine Bilirubin Negative (Negative) 02/06/22 Urine Urobilinogen Negative (Negative) 02/06/22 Urine Leukocyte Esterase Negative (Negative) 02/06/22 Blood Type O Positive 02/06/22 Antibody Screen NEGATIVE 02/06/22 Testing Electrocardiogram Date: 02/06/22 NSR at 61bpm. Chest X-Ray Date: 02/06/22 Findings: + NAD Echocardiogram Date: 09/11/17 EF 60%. Mild concentric LVH. Mildly thickened aortic valve with mild AI no significant . Stress Test Date: 02/08/21 Type: nuclear (Lexiscan) Lexiscan stress EKG is not indicative of ischemia. EF 51%. The 6% MPHR. Small fixed basal anterior lateral/anterior defect with normal thickening and wall motion? Artifact. No ischemia.
[~2022-02-27 06:02] MED LIST changes: +ACETAMINOPHEN 500 MG TAB PO SCH; -ASPI81TA28 PO; -CARV3.122 PO; -GABA-113 PO; +GABAPENTIN 300 MG CAP PO SCH; -GLC/500 PO; +LR 15ML/HR IV SCH; -NTRGSL/4 UT; -OXYC-57 PO; -PRAS1TAB6 PO; -SIMV40TA2 PO; +ceFAZolin 2000MG 2,000 MG/15 ML SYR IV SCH
[2022-02-27] MEDS ORDERED: NEOSTIGMINE METHYLSULFATE 1 MG/ML 10ML VIAL ONE (06:46)
[2022-02-27] MEDS ORDERED: MIDAZOLAM HCL 1 MG/ML 2ML VIAL ONE (06:46)
[2022-02-27] MEDS ORDERED: ROCURONIUM BROMIDE 10 MG/ML 5 ML VIAL IV ONE (06:46)
[2022-02-27] MEDS ORDERED: fentaNYL citrate 100 MCG/2 ML VIAL ONE ×2 (06:46→10:03)
[2022-02-27] MEDS ORDERED: GLYCOPYRROLATE 0.2 MG/ML VIAL ONE (06:46)
[2022-02-27] MEDS ORDERED: ONDANSETRON INJ 2 MG/ML 2 ML VIAL ONE (06:46)
[2022-02-27] MEDS ORDERED: LIDOCAINE 2% 2 ML VIAL/AMP(20MG/ML) INFIL ONE (06:46)
[2022-02-27] MEDS ORDERED: DEXAMETHASONE SOD INJ 4 MG/ML VIAL ONE (06:46)
[2022-02-27] MEDS ORDERED: ceFAZolin 330 MG/ML 1 GM VIAL ONE (07:03)
[2022-02-27] MEDS ORDERED: BUPIVACAINE/EPINEPHRINE 0.25% 1:200,000 30 ML VIAL ONE (07:03)
--- NOTE | 2022-02-27 07:28 | History & Physical Bridge Note ---
Date of Service February 27, 2022 History & Physical Bridge Note I have examined the patient, reviewed the History & Physical and in the interval since the performance of the History & Physical I have noted the following changes of clinical significance: no changes noted
--- NOTE | 2022-02-27 07:29 | History & Physical Report ---
Date of Service February 27, 2022 Assessment & Plan (1) Neurogenic claudication due to lumbar spinal stenosis: Plan: L2-L3 decompression and fusion, L3-S1 hardware removal History of Present Illness Chief Complaint: Back and leg pain Primary Care Provider: Dat Oh DO This is a 65-year-old male presents with chronic persistent back and leg pain. Failing course of nonoperative care is here for surgical invention. Allergies Allergy/AdvReac Type Severity Reaction Status Date / Time atorvastatin Allergy Unknown Per PCP Verified 02/27/22 06:59 records ibuprofen Allergy Unknown Facial Verified 02/27/22 06:59 swelling Iodinated Contrast Media Allergy Unknown Facial Verified 02/27/22 06:59 swelling lisinopril Allergy Unknown Hives Verified 02/27/22 06:59 Home Medications Medication Instructions Recorded Confirmed Type sildenafil 100 mg tablet 100 mg PO DAILY PRN #20 tab 10/05/21 02/27/22 Rx tamsulosin 0.4 mg capsule 0.4 mg PO DAILY #90 cap 10/05/21 02/27/22 Rx acetaminophen 500 mg tablet 1,500 mg PO Q6H PRN 02/05/22 02/27/22 History amlodipine 10 mg tablet 10 mg PO HS 02/05/22 02/27/22 History aspirin 81 mg tablet,delayed 81 mg PO QAM 02/05/22 02/27/22 History release budesonide-formoterol HFA 160 2 puff INHALATION BID PRN 02/05/22 02/27/22 History mcg-4.5 mcg/actuation aerosol inhaler (Symbicort) carvedilol 12.5 mg tablet 12.5 mg PO HS 02/05/22 02/27/22 History metformin 500 mg tablet 500 - 1,000 mg PO BID 02/05/22 02/27/22 History methocarbamol 500 mg tablet 500 mg PO BID 02/05/22 02/27/22 History montelukast 10 mg tablet 10 mg PO QAM 02/05/22 02/27/22 History nitroglycerin 0.4 mg sublingual 0.4 mg SUBLINGUAL UD PRN 02/05/22 02/27/22 History tablet (Nitrostat) simvastatin 20 mg tablet 20 mg PO HS 02/05/22 02/27/22 History Past Med/Surg History Medical History CAD (coronary artery disease) Stents x3 (2016) Chronic back pain LE radiculopathy + right foot numbness since last back surgery Diabetes mellitus, type 2 NIDDM Erectile dysfunction Heart attack [address] English/Anthony Hiatal hernia History of COVID-19 Covid positive ([facility]/early Nov 2021) > cold symptoms at time > resolved Obesity Sleep apnea CPAP (has not used in 1+ year) Temporomandibular joint disorder Right side clicking, no locking Surgical History History of ankle surgery History of back surgery History of cardiac cath Stents x3 (2016) History of colonoscopy 2018 History of facial surgery REMOVAL BENIGN MASS Family History Father Heart disease Hypertension Grandmother Breast cancer Social History Smoking Status: Never smoker Smoking End Date: QUIT 1998; Second Hand Exposure: No; Do You Dip or Chew Tobacco: No; Hx Alcohol Use: No Hx Substance Use: No Preferred Language: Bengali Communication Ability: Effective Clinical Sociologist Required: No Beliefs That Will Affect Care: None marital status: Current Living Situation: Spouse current occupational status: employed current occupation: [employer] Other Information That Helps Us Care for You: No Feels Safe at Home: Yes Safety Concerns: Feels Safe At This Time Assistive Devices: Cane and Glasses Assistive Devices Comment: CANE PRN Physical Exam Physical Exam: Patient is alert and oriented Heart regular rate and rhythm Lungs clear Results & Data ([facility]) Vital Signs (Past 12 Hours) Vital Signs Temp Pulse Resp BP Pulse Ox 02/27/22 06:50 36.7 C 66 20 175/79 H 97
[2022-02-27] MEDS ORDERED: FLOSEAL HEMOSTATIC MATRIX 10ML TOP ONE (08:51)
[2022-02-27] MEDS ORDERED: NALOXONE HCL 0.4 MG/1 ML VIAL/CARP IV PRN ×2 (09:11→12:39)
[2022-02-27] MEDS ORDERED: HYDROmorphone INJ 1 MG/ML SYRINGE IV PRN (09:11)
[2022-02-27] MEDS ORDERED: PROMETHAZINE HCL 12.5 MG in SODIUM CHLORIDE 0.9% 50 ML IV PRN ×2 (09:11→12:39)
[2022-02-27] MEDS ORDERED: FLUMAZENIL 0.1 MG/1 ML 10 ML VIAL IV PRN (09:11)
[2022-02-27] MEDS ORDERED: ATROPINE SULFATE 0.1 MG/ML 10ML SYR IV PRN (09:11)
[2022-02-27] MEDS ORDERED: LABETALOL HCL IV 5 MG/ML 20ML IV PRN (09:11)
[2022-02-27] MEDS ORDERED: ePHEDrine sulfate 50 MG/ML AMP IV PRN (09:11)
[2022-02-27] MEDS ORDERED: ONDANSETRON INJ 2 MG/ML 2 ML VIAL IV PRN ×2 (09:11→12:39)
--- NOTE | 2022-02-27 10:20 | Operative Report ---
Post Operative Report Pre & Post Diagnosis Operation Date: 02/27/22 07:45 Pre-Op Diagnosis: Neurogenic claudication due to lumbar spinal stenosis Post-Op Diagnosis: Neurogenic claudication due to lumbar spinal stenosis I identified the patient and participated in the time-out.: Yes Procedure Operation Date: 02/27/22 07:45 Actual Procedures #1 removal of posterior segmental instrumentation L3-S1. #2 exploration of fusion L3-S1. #3 lumbar decompressive bilateral medial facetectomies and foraminotomies L1-L2 and L2-L3. #4 posterior spinal fusion L2-L3. #5 patient posterior instrumentation L2-L4. #6 interbody fusion L2-L3. #7 placement of Spira 13 x 26 mm cage at L2-L3. #8 placement locally harvested morselized autograft in the posterior gutters. Midline placement I factor combined with V toss in interbody space and posterior Surgeon Marques Kumar, DO Plastic Printer Yana Tyler Estimated Blood Loss 350 Findings See Below The patient is 5 foot 7 inches tall weighing 114 kg with a BMI in excess of 39. Patient's body habitus did contribute to significant technical difficulty required deepest retractors longus instruments in order to perform his procedure. This at least 50% increased operative time. Specimens None Indications This is a 66-year-old male who presents with severe spinal stenosis and is here for surgical invention. Description of Procedure Patient was met with identified informed consent obtained. Patient was then taken to the operative suite underwent a patient placed in a prone position the [place] table top Arpan frame. All bony prominences well-padded eyes inspected to ensure no external pressure placed upon the. This point the lumbar spine was prepped and draped in normal sterile fashion. Sharp dissection with the assistance of Bovie cautery was performed down to and exposing the lamina and transverse processes of L2 and instrumentation at L3-L4-L5 and S1 levels bilaterally. I then proceeded move the hardware bilaterally explore the fusion mass noting it to be mature and intact. I then performed a complete laminectomy of L2 partial laminectomy of L1 including bilateral medial facetectomies and foraminotomies addressing severe spinal stenosis. Pedicle screws then placed in L2-L3 and L4 bilaterally with assistance of fluoroscopy and appropriate sized jennifer placed. By way of transforaminal approach on the left complete discectomy of L2-L3 was performed endplates curetted to subcortical bleeding bone and a 13 x 26 mm spiral cage filled I factor tapped in position. Rods were then compressed locked in final position bilaterally. The transverse processes of L2 and L3 burred to subcortical bleeding bone. I factor combined with V toss and locally harvested morselized autograft was placed in the posterior lateral gutters. 15 round LOLA drain inserted. Incision was then closed with 1 Vicryl to fascia 2-0 Vicryl subcutaneously and 4 Monocryl for final skin closure. Steri- Strip sterile dressings placed. Patient waken taken to PACU stable condition. Please note spinal cord monitoring was utilized at the procedure no changes noted. Lastly Yana Tyler was present out the entire procedure involved the patient positioning complex portions of the surgery and final skin closure. I attest to the content of the Intraoperative Record and any orders documented therein. Any exceptions are noted below.
[2022-02-27] MEDS ORDERED: INSULIN HUMAN REGULAR PER UNIT 10 UNITS in SYRINGE 0 ML IV STA (10:45)
[2022-02-27] MEDS ORDERED: ePHEDrine sulfate 50 MG/ML AMP ONE (10:51)
[2022-02-27] MEDS ORDERED: NovoLIN-R INSULIN PER UNIT CHARGE ONE (10:53)
--- NOTE | 2022-02-27 11:14 | Fluoroscopy Report ---
FL lumbar spine 2-3V CLINICAL HISTORY: L2-L3 D/F, L3-S1 hardware REMOVAL COMPARISON STUDY: None. FLUOROSCOPY TIME: 14 seconds. FINDINGS: 2 fluoroscopic spot images of the lumbar spine demonstrate posterior decompression fusion f rom L2 through L4 with pedicle screws and rods. The hardware appears intact. IMPRESSION: Fluoroscopic assistance provided for L2-L4 posterior decompression and fusion. ACT 112: Negative or not required by law. Electronically signed by: Jason Moreno M.D. 02/27/2022 11:11 AM
[2022-02-27] MEDS: fentaNYL citrate 100 MCG/2 ML VIAL IV PRN ×4 (11:44→12:01)
[2022-02-27 11:51] LABS: Hematocrit (blood only) 36.4 % (42-52); Hemoglobin 12.2 g/dL (14.0-18.0)
[2022-02-27] MEDS ORDERED: PHARMACY GLYCEMIC MGMT CONSULT PRN (12:39)
[2022-02-27] MEDS ORDERED: diphenhydrAMINE Capsule 25 MG CAP PO PRN (12:39)
[2022-02-27] MEDS ORDERED: ALUMINUM/MAGNESIUM SUSP 30 ML UDC PO PRN (12:39)
[2022-02-27] MEDS ORDERED: NITROGLYCERIN SL 0.4 MG/TAB TAB SL PRN (12:39)
[2022-02-27] MEDS ORDERED: HYDROmorphone INJ 0.5 MG/0.5 ML SYR IV PRN (12:39)
[2022-02-27] MEDS ORDERED: LORazepam 0.5 MG TAB PO PRN (12:39)
[2022-02-27] MEDS ORDERED: ACETAMINOPHEN 1,000 MG/100 ML VIAL IV PRN (12:39)
[2022-02-27] MEDS ORDERED: bisacodyL 10 MG SUPP PR PRN (12:39)
[2022-02-27] MEDS ORDERED: SOD PHOSPHATE/SOD BIPHOSPHATE ENEMA 132 ML BTL PR PRN (12:39)
[2022-02-27] MEDS ORDERED: MAGNESIUM HYDROXIDE SUSP 30 ML UDC PO PRN (12:39)
[2022-02-27] MEDS ORDERED: ACETAMINOPHEN 500 MG TAB PO PRN (12:39)
[2022-02-27] MEDS ORDERED: LORazepam 2 MG/1 ML VIAL IV PRN (12:39)
[2022-02-27] MEDS ORDERED: ONDANSETRON 4 MG OD TAB PO PRN (12:39)
[2022-02-27] MEDS ORDERED: FAMOTIDINE 20 MG TAB PO PRN (12:39)
[2022-02-27] MEDS ORDERED: DO NOT ADMINISTER PNEUMOCOCCAL VACCINE PRN (12:39)
[2022-02-27] MEDS ORDERED: traMADol HCL 50 MG TABLET PO PRN (12:39)
[2022-02-27] MEDS ORDERED: DO NOT ADMINISTER FLU VACCINE PRN (12:39)
[2022-02-27] MEDS ORDERED: METOCLOPRAMIDE HCL INJ 5 MG/ML 2 ML VIAL IV PRN (12:39)
[2022-02-27] MEDS ORDERED: hydrOXYzine HCl 25 MG TAB PO PRN (12:39)
--- NOTE | 2022-02-27 12:45 | Anesthesiology Progress Note ---
Date of Service February 27, 2022 Anesthesia Post Procedure Vital Signs Vital Signs: Temp Pulse Pulse Resp BP BP Pulse Ox 02/27/22 12:10 78 17 133/65 95 02/27/22 12:00 80 19 142/65 H 94 02/27/22 11:50 70 13 130/67 92 02/27/22 11:40 36.7 C 73 15 130/69 95 02/27/22 11:30 72 19 133/62 94 02/27/22 11:20 71 20 129/64 95 02/27/22 11:10 67 16 123/61 97 02/27/22 11:00 64 17 151/76 H 97 02/27/22 10:50 73 16 139/80 96 02/27/22 10:41 36.0 C L 74 9 L 157/81 H 100 02/27/22 06:50 36.7 C 66 20 175/79 H 97 Pain Intensity Lower Back: Pain Intensity: 3 Transfer of Care Handoff Completed per policy Notes Mental Status: alert / awake / arousable Patient Amnestic to Procedure: Yes Nausea / Vomiting: adequately controlled Pain: adequately controlled Airway Patency, RR, SpO2: stable & adequate BP & HR: stable & adequate Hydration State: stable & adequate Anesthetic Complications: no major complications apparent
--- NOTE | 2022-02-27 13:03 | Consultation ---
Date of Consultation February 27, 2022 Assessment & Plan (1) Neurogenic claudication due to lumbar spinal stenosis: (2) CAD (coronary artery disease): (3) Diabetes mellitus, type 2: This is a 66-year-old male who has significant past medical history of CAD with history of coronary stenting in 2016, HTN, HLD, COPD, EDIL noncompliant with CPAP, T2DM, psoriasis who presents for elective lumbar procedure by Dr. Kumar. Lumbar spinal stenosis with neurogenic claudication History of previous back surgery Actual Procedures #1 removal of posterior segmental instrumentation L3-S1. #2 exploration of fusion L3-S1. #3 lumbar decompressive bilateral medial facetectomies and foraminotomies L1-L2 and L2-L3. #4 posterior spinal fusion L2-L3. #5 patient posterior instrumentation L2-L4. #6 interbody fusion L2-L3. #7 placement of Spira 13 x 26 mm cage at L2-L3. #8 placement locally harvested morselized autograft in the posterior gutters. Midline placement I factor combined with V toss in interbody space and posterior. POD #[address] Kumar EBL 350 m; LOLA drain 165ml tolerated procedure well Pain/wound management per orthopedic Activity and therapy as directed by Ortho Encourage incentive spirometry and wean oxygen as able Monitor hemoglobin, preop 13.1, immediate postop 12.2 CAD History of PCI x3 in 2016 Last stress echo 01/2021 revealed EF 61% with no inducible ischemia Continue ASA, statin, carvedilol HTN Continue amlodipine and carvedilol Blood pressure stable T2DM Last A1c 7.5 02/06/2022 Hold metformin Glycemic pharmacy consulted, appreciate their management DVT prophylaxis: Per orthopedics, SCD/teds PCP: Dr. Dat Oh FULL CODE Pt was seen and examined in collaboration with Dr. Solomon, please see addendum Thank you for this consultation. We will follow the patient with you during their hospital stay. You can reach a member of the [facility] Hospitalist Team 19/05 via hospitalist role on tiger text. Supervising Physician Co-Signing Physician Notes 66 yo M w/ PMH of CAD s/p stents x 3, HTN, HLD, COPD, EDIL noncompliant w/ CPAP, T2DM and psoriasis presented 02/27 for elective lumbar Sx by Dr. Kumar. Pt is s/p lumbar decompression and fusion for neurogenic claudication d/t lumbar spinal stenosis by Dr. Kumar. Pt with pain at bedside exam, not in distress though. Pt denies other ROS including nausea, vomiting, headache dizziness. Pt reports not moving gas or bowel after Sx, we will give it time. Advance diet as tolerated. Vitals reviewed and stable. Resume home meds as appropriate. Pain Mx/DVT Px/PT and OT per Ortho. Incentive spirometry. Upon Exam GENERAL: Alert and oriented x3. NAD, on RA. HEENT: No pallor, no icterus. Pupils equal, round and reactive to light. Oral mucosa moist. NECK: No JVD, no neck masses. HEART: S1 and S2 heard. Regular rate and rhythm. systolic murmur at pulmonic area > aortic area, no gallop. RESPIRATORY SYSTEM: Normal AP diameter. No accessory muscle use. No wheezing, no crackles. ABDOMEN: Soft, bowel sounds present, nontender, no distention. CENTRAL NERVOUS SYSTEM: No facial droop. Speech is clear. Obeys simple commands. Moves extremities. EXTREMITIES: No edema, no erythema seen. Distal neurovascular status wnl. low back with clean dressing, LOLA drain in situ w/ moderate serosanguinous collection noted. UC w/ light yellow urine collection noted. I have seen and examined the patient and have discussed the case with the provider above. I agree with the assessment and plan as stated. History of Present Illness Requesting Physician: Dr. Kumar Reason for Consultation: Post op medical management Attending Physician: Marques Kumar, DO History of Present Illness This is a 66-year-old male who has significant past medical history of CAD with history of coronary stenting in 2016, HTN, HLD, COPD, EDIL noncompliant with CPAP, T2DM, psoriasis who presents for elective lumbar procedure by Dr. Kumar. He previously had lumbar procedure in the past. Today he underwent L2 and L3 decompression fusion with removal of hardware from L3-S1. Postoperatively he is complaining of low back pain 9 out of 10. He denies any radicular symptoms. He feels it is due to positioning in bed as well as incisional. He denies any fever, chills, sweats, lightheadedness, dizziness, chest pain, shortness of breath, nausea, vomiting, abdominal pain. He currently has a Brown catheter in place. Patient's PCP is Dat Oh in [facility]. He has history of CAD with percutaneous intervention back in 2016. He denies any chest pain or shortness of breath. He currently works at [employer] and is otherwise very active. He does have history of EDIL but is noncompliant with his CPAP as he could not tolerate it. He also has a history of T2DM with most recent A1c on 02/06 and 7.5. He has managed with metformin. Allergies Allergy/AdvReac Type Severity Reaction Status Date / Time atorvastatin Allergy Unknown Per PCP Verified 02/27/22 06:59 records ibuprofen Allergy Unknown Facial Verified 02/27/22 06:59 swelling Iodinated Contrast Media Allergy Unknown Facial Verified 02/27/22 06:59 swelling lisinopril Allergy Unknown Hives Verified 02/27/22 06:59 Home Medications Medication Instructions Recorded Confirmed Type sildenafil 100 mg tablet 100 mg PO DAILY PRN #20 tab 10/05/21 02/27/22 Rx tamsulosin 0.4 mg capsule 0.4 mg PO DAILY #90 cap 10/05/21 02/27/22 Rx acetaminophen 500 mg tablet 1,500 mg PO Q6H PRN 02/05/22 02/27/22 History amlodipine 10 mg tablet 10 mg PO HS 02/05/22 02/27/22 History aspirin 81 mg tablet,delayed 81 mg PO QAM 02/05/22 02/27/22 History release budesonide-formoterol HFA 160 2 puff INHALATION BID PRN 02/05/22 02/27/22 History mcg-4.5 mcg/actuation aerosol inhaler (Symbicort) carvedilol 12.5 mg tablet 12.5 mg PO HS 02/05/22 02/27/22 History metformin 500 mg tablet 500 - 1,000 mg PO BID 02/05/22 02/27/22 History methocarbamol 500 mg tablet 500 mg PO BID 02/05/22 02/27/22 History montelukast 10 mg tablet 10 mg PO QAM 02/05/22 02/27/22 History nitroglycerin 0.4 mg sublingual 0.4 mg SUBLINGUAL UD PRN 02/05/22 02/27/22 History tablet (Nitrostat) simvastatin 20 mg tablet 20 mg PO HS 02/05/22 02/27/22 History Patient History Medical History (Updated 02/27/22 @ 13:21 by Christy Alvarez PA-C) CAD (coronary artery disease) Stents x3 (2016) Chronic back pain LE radiculopathy + right foot numbness since last back surgery Diabetes mellitus, type 2 NIDDM Erectile dysfunction Heart attack [address] English/Anthony Hiatal hernia History of COVID-19 Covid positive ([facility]/early Nov 2021) > cold symptoms at time > resolved Obesity Sleep apnea CPAP (has not used in 1+ year) Temporomandibular joint disorder Right side clicking, no locking Surgical History History of ankle surgery History of back surgery History of cardiac cath Stents x3 (2016) History of colonoscopy 2018 History of facial surgery REMOVAL BENIGN MASS Family History Father Heart disease Hypertension Grandmother Breast cancer Social History Smoking Status: Never smoker Smoking End Date: QUIT 1998; Second Hand Exposure: No; Do You Dip or Chew Tobacco: No; Hx Alcohol Use: No Hx Substance Use: No Preferred Language: Kenyan Communication Ability: Effective Acquisition Professional Required: No Beliefs That Will Affect Care: None marital status: Current Living Situation: Spouse current occupational status: employed current occupation: [employer] Other Information That Helps Us Care for You: No Feels Safe at Home: Yes Safety Concerns: Feels Safe At This Time Assistive Devices: Cane and Glasses Assistive Devices Comment: CANE PRN Review of Systems Review of Systems: All systems reviewed & are unremarkable except as noted in HPI & below Physical Exam Physical Exam: Constitutional: WD/WN, Drowsy, M, vitals as above, NAD, lying in bed, pleasant, conversing easily Head: Normocephalic, Atraumatic Eyes: PERRL, conjunctivae normal, anicteric sclerae ENMT: external ear and nose normal, oropharynx normal Neck: trachea midline, no thyromegaly normal visual inspection Respiratory: 2L of O2 via NC, normal respiratory effort, lungs clear to auscultation, no wheeze, rales, rhonchi. Normal insp/exp effort, no accessory muscle use Cardiovascular: RRR, no murmur, no edema Vessels: no JVD or carotid bruit Chest: normal inspection of chest Abdomen: normal bowel sounds, soft, nontender, no hepatosplenomegaly Musculoskeletal: no cyanosis or clubbing, AROM x 4 Skin: no rashes, warm and dry normal turgor Neurologic: PERRL, EOMI, accommodation nl, no face palsy, no dysarthria CN's II-XI intact bilaterally and moves all extremities Psychiatric: A+Ox3, euthymic affect Lymphatic: no cervical or axillary lymphadenopathy : +brown cath in place draining yellow urine Results & Data ([facility]) Vital Signs (Past 12 Hours) Vital Signs Temp Pulse Pulse Resp BP BP Pulse Ox 02/27/22 12:30 36.3 C L 83 18 110/73 94 02/27/22 12:10 78 17 133/65 95 02/27/22 12:00 80 19 142/65 H 94 02/27/22 11:50 70 13 130/67 92 02/27/22 11:40 36.7 C 73 15 130/69 95 02/27/22 11:30 72 19 133/62 94 02/27/22 11:20 71 20 129/64 95 02/27/22 11:10 67 16 123/61 97 02/27/22 11:00 64 17 151/76 H 97 02/27/22 10:50 73 16 139/80 96 02/27/22 10:41 36.0 C L 74 9 L 157/81 H 100 02/27/22 06:50 36.7 C 66 20 175/79 H 97 Laboratory Results Preoperative lab work on 02/06 include hemoglobin 13.1 and hematocrit 38.7, A1c 7.5, BMP unremarkable except for hyperglycemia with glucose of 223, urinalysis negative, SARS-CoV-2 negative Diagnostic Findings Lumbar Spine X-Ray 02/27/22 07:45 FL lumbar spine 2-3V CLINICAL HISTORY: L2-L3 D/F, L3-S1 hardware REMOVAL COMPARISON STUDY: None. FLUOROSCOPY TIME: 14 seconds. FINDINGS: 2 fluoroscopic spot images of the lumbar spine demonstrate posterior decompression fusion from L2 through L4 with pedicle screws and rods. The hardware appears intact. IMPRESSION: Fluoroscopic assistance provided for L2-L4 posterior decompression and fusion. ACT 112: Negative or not required by law. Electronically signed by: Jason Moreno M.D. 02/27/2022 11:11 AM Preoperative chest x-ray on 02/06/2022 revealed no acute cardiopulmonary disease Medications Administered Current Inpatient Medications Acetaminophen (Acetaminophen 500 Mg Tab) 1,000 mg PO PREOP GRAYSON Stop: 02/27/22 18:00 Last Admin: 02/27/22 07:25 Dose: 1,000 mg Documented by: Acetaminophen (Acetaminophen 500 Mg Tab) 1,000 mg PO Q8H PRN PRN Reason: MILD Pain Scale 1,2,3 & Pre PT Stop: 03/29/22 12:38 Al Hydrox/Mg Hydrox/Simethicone (Aluminum/Magnesium Susp 30 Ml Udc) 30 ml PO Q6H PRN PRN Reason: Dyspepsia Stop: 03/29/22 12:38 Amlodipine Besylate (Amlodipine Besylate 5 Mg Tab) 10 mg PO HS GRAYSON Stop: 03/29/22 20:59 Aspirin (Aspirin 81 Mg Ectab) 81 mg PO QAM GRAYSON Stop: 03/30/22 08:59 Atropine Sulfate (Atropine Sulfate 0.1 Mg/Ml 10ml Syr) 0.5 mg IV Q1M PRN PRN Reason: PACU Use-HR<40 &/or Bradycardi Stop: 02/27/22 17:11 Bisacodyl (Bisacodyl 10 Mg Supp) 10 mg TN DAILY PRN PRN Reason: Constipation Stop: 03/29/22 12:38 Carvedilol (Carvedilol 12.5 Mg Tab) 12.5 mg PO HS GRAYSON Stop: 03/29/22 20:59 Dextrose (Dextrose 50% 50 Ml Syringe) 25 - 50 ml IV UD PRN; Protocol PRN Reason: Hypoglycemia Protocol Stop: 03/29/22 13:03 Diphenhydramine HCl (Diphenhydramine Capsule 25 Mg Cap) 25 mg PO Q6H PRN PRN Reason: Allergic Rhinitis/Insomnia Stop: 03/29/22 12:38 Ephedrine Sulfate (Ephedrine Sulfate 50 Mg/Ml Amp) 5 mg IV Q5M PRN PRN Reason: PACU Use Only-SBP<90 mmHg Stop: 02/27/22 17:11 Famotidine (Famotidine 20 Mg Tab) 20 mg PO Q12H PRN PRN Reason: Dyspepsia Stop: 03/29/22 12:38 Fentanyl Citrate (Fentanyl Citrate 100 Mcg/2 Ml Vial) 25 mcg IV Q5M PRN PRN Reason: PACU Use Only-Pain Stop: 02/27/22 17:12 Last Admin: 02/27/22 12:01 Dose: 25 mcg Documented by: Flumazenil (Flumazenil 0.1 Mg/1 Ml 10 Ml Vial) 0.2 mg IV Q2M PRN PRN Reason: PACU Use Only-Benzo Reversal Stop: 02/27/22 17:12 Gabapentin (Gabapentin 300 Mg Cap) 300 mg PO PREOP GRAYSON Stop: 02/27/22 18:00 Last Admin: 02/27/22 07:25 Dose: 300 mg Documented by: Glucagon (Glucagon For Inj 1 Mg Vial) 1 mg SQ UD PRN; Protocol PRN Reason: Hypoglycemia Protocol Stop: 03/29/22 13:03 Glucose (Glucose 10 Tabs/Tube) 4 - 8 tabs PO UD PRN; Protocol PRN Reason: Hypoglycemia Protocol Stop: 03/29/22 13:03 Glucose (Glucose 40% Gel 15 Gm Tube) 15 - 30 gm PO UD PRN; Protocol PRN Reason: Hypoglycemia Protocol Stop: 03/29/22 13:03 Hydromorphone HCl (Hydromorphone Inj 1 Mg/Ml Syringe) 0.25 mg IV Q5M PRN PRN Reason: PACU Use Only-Pain Stop: 02/27/22 17:12 Hydromorphone HCl (Hydromorphone Inj 0.5 Mg/0.5 Ml Syr) 0.5 mg IV Q3H PRN PRN Reason: MODERATE Pain (Scale 4,5,6) & Pre PT Stop: 03/13/22 12:38 Hydromorphone HCl (Hydromorphone Inj 1 Mg/Ml Syringe) 1 mg IV Q3H PRN PRN Reason: SEVERE Pain (Scale 7,8,9,10) Stop: 03/13/22 12:38 Hydroxyzine HCl (Hydroxyzine Hcl 25 Mg Tab) 25 mg PO Q8H PRN PRN Reason: Anxiety Stop: 03/29/22 12:38 Lactated Ringer's (Lr) 1,000 mls @ 15 mls/hr IV .Q24H GRAYSON Stop: 02/28/22 05:59 Last Infusion: 02/27/22 07:53 Dose: Infused Documented by: Cefazolin Sodium (Ancef 2000mg) 2,000 mg in 15 mls @ 3.75 mls/min IV PREOP GRAYSON; Protocol Stop: 02/27/22 18:00 Last Admin: 02/27/22 07:53 Dose: 3.75 mls/min Documented by: Promethazine HCl 12.5 mg/ (Sodium Chloride) 50.5 mls @ 204 mls/hr IV ONCE PRN PRN Reason: PACU Use Only-Nausea/Vomiting Stop: 02/27/22 17:12 Cefazolin Sodium (Ancef 2000mg) 2,000 mg in 15 mls @ 3.75 mls/min IV Q8H GRAYSON; Protocol Stop: 02/28/22 00:33 Sodium Chloride (Nss 1000ml) 1,000 mls @ 150 mls/hr IV .Q6H40M [facility] Stop: 03/29/22 12:38 Promethazine HCl 12.5 mg/ (Sodium Chloride) 50.5 mls @ 202 mls/hr IV Q6H PRN PRN Reason: Nausea &/or Vomiting Stop: 03/29/22 12:38 Acetaminophen (Ofirmev) 1,000 mg in 100 mls @ 400 mls/hr IV Q8H PRN PRN Reason: Pain Rating 1-3 & Pre PT Stop: 03/02/22 12:38 Influenza Virus Vaccine Quadrival (Do Not Administer Flu Vaccine) 1 ea N/A PRN PRN PRN Reason: Notification Stop: 03/29/22 12:38 Insulin Aspart (Insulin Aspart Per Unit) 0 units SC ACHS [facility] Stop: 03/29/22 16:29 Labetalol HCl (Labetalol Hcl Iv 5 Mg/Ml 20ml) 5 mg IV Q5M PRN PRN Reason: PACU Use-SBP>160 or DBP>100 Stop: 02/27/22 17:12 Lorazepam (Lorazepam 0.5 Mg Tab) 0.5 mg PO Q8H PRN PRN Reason: Sedation/Anxiety Stop: 03/29/22 12:38 Lorazepam (Lorazepam 2 Mg/1 Ml Vial) 0.5 mg IV Q8H PRN PRN Reason: Sedation/Anxiety Stop: 03/29/22 12:38 Magnesium Hydroxide (Magnesium Hydroxide Susp 30 Ml Udc) 30 ml PO Q24H PRN PRN Reason: Constipation Stop: 03/29/22 12:38 Methocarbamol (Methocarbamol 500 Mg Tablet) 500 mg PO BID GRAYSON Stop: 03/29/22 20:59 Metoclopramide HCl (Metoclopramide Hcl Inj 5 Mg/Ml 2 Ml Vial) 10 mg IV Q6H PRN PRN Reason: Nausea &/or Vomiting Stop: 03/29/22 12:38 Miscellaneous (Carbohydrates For Hypoglycemia ) 15 - 30 gm PO UD PRN PRN Reason: Hypoglycemia Protocol Stop: 03/29/22 13:03 Miscellaneous Information (Pharmacy Glycemic Mgmt Consult) 1 ea N/A UD PRN PRN Reason: Consult Stop: 03/29/22 12:38 Montelukast Sodium (Montelukast Sodium 10 Mg Tablet) 10 mg PO QAM GRAYSON Stop: 03/30/22 08:59 Naloxone HCl (Naloxone Hcl 0.4 Mg/1 Ml Vial/Carp) 0.2 mg IV Q2M PRN PRN Reason: PACU Use Only-Opiate Reversal Stop: 02/27/22 17:12 Naloxone HCl (Naloxone Hcl 0.4 Mg/1 Ml Vial/Carp) 0.1 mg IV Q5M PRN PRN Reason: Oversedation/Resp depression Stop: 03/29/22 12:38 Nitroglycerin (Nitroglycerin Sl 0.4 Mg/Tab Tab) 0.4 mg SL UD PRN PRN Reason: Chest Pain Stop: 03/29/22 12:38 Ondansetron HCl (Ondansetron Inj 2 Mg/Ml 2 Ml Vial) 4 mg IV ONCE PRN PRN Reason: PACU Use Only-Nausea/Vomiting Stop: 02/27/22 17:12 Ondansetron HCl (Ondansetron Inj 2 Mg/Ml 2 Ml Vial) 4 mg IV Q6H PRN PRN Reason: Nausea &/or Vomiting Stop: 03/29/22 12:38 Ondansetron HCl (Ondansetron 4 Mg Od Tab) 4 mg PO Q6H PRN PRN Reason: Nausea Stop: 03/29/22 12:38 Oxycodone HCl (Oxycodone Hcl Ir 5 Mg Tab (Immediate Release)) 5 - 10 mg PO Q4H PRN PRN Reason: Pain & Pre PT Stop: 03/13/22 12:38 Pneumococcal Polyvalent Vaccine (Do Not Administer Pneumococcal Vaccine) 1 ea N/A PRN PRN PRN Reason: Notification Stop: 03/29/22 12:38 Polyethylene Glycol (Polyethylene (Miralax) 17 Gm Pack) 17 gm PO Q6 [facility] Stop: 03/30/22 05:59 Senna/Docusate Sodium (Docusate Sodium/Senna 50/8.6mg Tab) 2 tab PO HS GRAYSON Stop: 03/29/22 20:59 Simvastatin (Simvastatin 20 Mg Tab) 20 mg PO HS GRAYSON Stop: 03/29/22 20:59 Sodium Biphosphate/Sodium Phosphate (Sod Phosphate/Sod Biphosphate Enema 132 Ml Btl) 132 ml TN ONE PRN PRN Reason: Constipation Stop: 03/29/22 12:38 Tamsulosin HCl (Tamsulosin Hcl 0.4 Mg Cap) 0.4 mg PO DAILY GRAYSON Stop: 03/30/22 08:59 Tramadol HCl (Tramadol Hcl 50 Mg Tablet) 50 - 100 mg PO Q4H PRN PRN Reason: Moderate-Severe pain & Pre PT Stop: 03/29/22 12:38 ECG Rate (beats per minute): 61 Rhythm: normal sinus
[2022-02-27] MEDS ORDERED: GLUCOSE 40% GEL 15 GM TUBE PO PRN (13:04)
[2022-02-27] MEDS ORDERED: GLUCOSE 10 TABS/TUBE PO PRN (13:04)
[2022-02-27] MEDS ORDERED: CARBOHYDRATES FOR HYPOGLYCEMIA PO PRN (13:04)
[2022-02-27] MEDS ORDERED: GLUCAGON FOR INJ 1 MG VIAL SQ PRN (13:04)
[2022-02-27] MEDS ORDERED: DEXTROSE 50% 50 ML SYRINGE IV PRN (13:04)
[2022-02-27] MEDS ORDERED: INSULIN HUMAN NPH SC STA (13:08)
[2022-02-27] MEDS ORDERED: INSULIN ASPART PER UNIT SC STA (13:09)
--- NOTE | 2022-02-27 13:18 | Pharmacy Report ---
Pharmacy Glycemic Short Note 2 - Date of Service February 27, 2022 - Glycemic Short BSG Results (Last 24 hours): 02/27/22 02/27/22 02/27/22 06:49 10:43 11:49 POC Glucose 149 H 250 H 201 H 02/27/22 12:37 POC Glucose 201 H OUTPATIENT ANTIDIABETIC REGIMEN: * Metformin 1000mg Q AM + 500mg Q PM * A1c = 7.5% 02/06/22 ASSESSMENT: * Reasonably well controlled type 2 diabetic admitted for neurogenic claudicat ion due to lumbar spinal stenosis. Patient is now s/p lumbar decompression/fusion with removal of hardware. * It appears patient was given dexamethasone IV by Anesthesia trinity-op due to patient charges, BSG did climb post-op. * Will provide wt based NPH dose x 1 to cover steroid induced hyperglycemia. Will utilize weight-based moderate stress Novolog doses initially. Doses will need to be reassessed tomorrow AM as steroid effects likely to have dissipated at that time. Could possibly resume metformin if tolerating diet and no SOLA present. PLAN FOR INPATIENT GLYCEMIC CONTROL: * Hold outpatient oral diabetes medications (metformin) * Basal insulin * NPH 20 units SQ x 1 (~0.18 units/kg) * Bolus insulin * NovoLog per scale ACHS or Q6hrs while NPO * Goal Range: Low 110 mg/dL - High 140 mg/dL * Correction Factor: 20 mg/dL/unit * Nutritional / Prandial insulin per carb ratio of 1 unit per 7 grams CHO consumed
[2022-02-27] MEDS: SODIUM CHLORIDE 0.9% 1000ML 1,000 ML IV SCH ×2 (14:03→21:22)
[2022-02-27] MEDS: oxyCODONE HCL IR 5 MG TAB (IMMEDIATE RELEASE) PO PRN (15:36)
[2022-02-27] MEDS: HYDROmorphone INJ 1 MG/ML SYRINGE IV PRN (18:16)
[2022-02-27] MEDS: ceFAZolin 2000MG 2,000 MG/15 ML SYR IV SCH ×2 (18:17→23:42)
[2022-02-27] MEDS: INSULIN ASPART PER UNIT SC SCH ×2 (18:25→21:24)
[2022-02-27] MEDS: carvediloL 12.5 MG TAB PO SCH (21:23)
[2022-02-27] MEDS: DOCUSATE SODIUM/SENNA 50/8.6MG TAB PO SCH (21:24)
[2022-02-27] MEDS: METHOCARBAMOL 500 MG TABLET PO SCH (21:25)
[2022-02-27] MEDS: SIMVASTATIN 20 MG TAB PO SCH (21:25)
[2022-02-27] MEDS: amLODIPine BESYLATE 5 MG TAB PO SCH (22:06)
[2022-02-28] MEDS: HYDROmorphone INJ 1 MG/ML SYRINGE IV PRN ×3 (00:30→19:57)
[2022-02-28] MEDS: oxyCODONE HCL IR 5 MG TAB (IMMEDIATE RELEASE) PO PRN ×4 (03:58→21:46)
[2022-02-28] MEDS: SODIUM CHLORIDE 0.9% 1000ML 1,000 ML IV SCH (04:05)
[2022-02-28] MEDS: POLYETHYLENE (MIRALAX) 17 GM PACK PO SCH ×4 (06:01→22:28)
[2022-02-28 06:47] LABS: Basophils # (auto) 0.01 K/uL (0-0.2); Basophils % (auto) 0.1 %; Eosinophils # (auto) 0.04 K/uL (0-0.5); Eosinophils % (auto) 0.3 %; Hematocrit (blood only) 34.3 % (42-52); Hemoglobin 11.3 g/dL (14.0-18.0); Immature Granulocytes # (auto) 0.03 K/uL (0.00-0.02); Immature Granulocytes % (auto) 0.3 %; Lymphocytes # (auto) 1.41 K/uL (1.2-3.4); Lymphocytes % (auto) 12.2 %; Mean Corpuscular Hemoglobin 29.3 pg (25-34); Mean Corpuscular Hgb Conc 32.9 g/dL (32-36); Mean Corpuscular Volume 88.9 fL (80-100); Mean Platelet Volume 9.6 fL (7.4-10.4); Monocytes # (auto) 1.44 K/uL (0.11-0.59); Monocytes % (auto) 12.5 %; Neutrophils # (auto) 8.62 K/uL (1.4-6.5); Neutrophils % (auto) 74.6 %; Platelet Count 190 K/uL (130-400); RDW Standard Deviation 48.5 fL (36.4-46.3); Red Blood Count 3.86 M/uL (4.7-6.1); White Blood Count 11.55 K/uL (4.8-10.8)
[2022-02-28 07:13] LABS: BUN Creatinine Ratio 13.8 (10-20); Calcium 8.5 mg/dl (8.5-10.1); Creatinine Clr Calc Pharmacy 102.1 ml/min; Est GFR (Non-African American) 90.6 ml/min; Potassium 4.5 mmol/L (3.5-5.1)
[2022-02-28] MEDS ORDERED: INSULIN HUMAN NPH SC ONE (08:30)
[2022-02-28] MEDS: INSULIN ASPART PER UNIT SC SCH ×4 (08:43→21:09)
[2022-02-28] MEDS: ASPIRIN 81 MG ECTAB PO SCH (08:48)
[2022-02-28] MEDS: METHOCARBAMOL 500 MG TABLET PO SCH ×2 (08:48→21:08)
[2022-02-28] MEDS: MONTELUKAST SODIUM 10 MG TABLET PO SCH (08:48)
[2022-02-28] MEDS: TAMSULOSIN HCL 0.4 MG CAP PO SCH (08:48)
--- NOTE | 2022-02-28 09:06 | Orthopedic Progress Note ---
Date of Service February 28, 2022 Assessment & Plan (1) Neurogenic claudication due to lumbar spinal stenosis: Plan: At this time we will initiate physical therapy monitor his LOLA output anticipate discharge home this weekend. Admission and Anticipated Discharge Date Admission Date: February 27, 2022 Subjective Patient's back pain is controlled leg symptoms improved Physical Exam Physical Exam: Patient is constricted testing. Appears comfortable. Results & Data ([facility]) Vital Signs (Past 12 Hours) Vital Signs Temp Pulse Resp BP BP Pulse Ox 02/28/22 07:06 36.4 C L 63 20 143/70 H 96 02/28/22 03:50 36.8 C 58 L 18 153/65 H 96 02/27/22 23:26 36.6 C 69 18 123/70 96 02/27/22 21:08 36.5 C 78 16 130/80 96
--- NOTE | 2022-02-28 17:11 | Hospitalist Progress Note ---
Date of Service February 28, 2022 Assessment & Plan (1) Neurogenic claudication due to lumbar spinal stenosis: (2) CAD (coronary artery disease): (3) Diabetes mellitus, type 2: Plan: Patient is a 66 yr male who has significant past medical history of CAD with history of coronary stenting in 2016, HTN, HLD, COPD, EDIL noncompliant with CPAP, T2DM, psoriasis who presents for elective lumbar procedure by Dr. Kumar. Lumbar spinal stenosis with neurogenic claudication H/O previous back surgery S/P 1. removal of posterior segmental instrumentation L3-S1. #2 exploration of fusion L3-S1. #3 lumbar decompressive bilateral medial facetectomies and foraminotomies L1-L2 and L2-L3. #4 posterior spinal fusion L2-L3. #5 patient posterior instrumentation L2-L4. #6 interbody fusion L2-L3. #7 placement of Spira 13 x 26 mm cage at L2-L3. #8 placement locally harvested morselized autograft in the posterior gutters. Midline placement I factor combined with V toss in interbody space and posterior. Postoperative acute blood loss anemia --Appreciate Orthopedics Input Pain control, Incentive Spirometry Continue Wound Care, PT/OT Monitor CBC Bowel regimen to prevent constipation CAD History of PCI x3 in 2016 Last stress echo 01/2021 revealed EF 61% with no inducible ischemia Continue ASA, statin, carvedilol HTN Continue amlodipine and carvedilol Monitor DM II Last A1c 7.5 02/06/2022 Hold metformin Glycemic pharmacy consulted, appreciate their management DVT Px: Per orthopedics Code Status FULL CODE Disposition Per Primary Team Admission and Anticipated Discharge Date Admission Date: February 27, 2022 Subjective Patient is seen and examined at bedside States having Back pain at surgical site radiating to leg No other complaints BP slightly elevated today due to pain Review of Systems Review of Systems: All systems reviewed & are unremarkable except as noted in Subjective Physical Exam Physical Exam: Physical Exam: Vitals signs as noted above General Appearance:Obese, No apparent distress Head: normocephalic, Atraumatic Eyes: normal inspection, EOMI Neck: supple, Trachea midline Respiratory/Chest: Normal breath sounds, CTA, No accessory muscle use Cardiovascular: S1, S2, No murmur Abdomen/GI:Soft, Non tender, Bowel sounds present Back: Surgical site, +drain Extremities/Musculoskeletal:normal inspection, 1+ B/L LE Edema Neurologic/Psych:AAOX3, grossly no focal neurological deficits Skin: normal color, warm Results & Data Results & Data ([facility]) Vital Signs (Past 12 Hours) Vital Signs Temp Pulse Resp BP BP Pulse Ox 02/28/22 16:48 36.6 C 67 18 178/73 H 94 02/28/22 15:34 36.5 C 67 20 149/75 H 95 02/28/22 07:06 36.4 C L 63 20 143/70 H 96 Laboratory Results Short CBC 02/28/22 Range/Units 06:07 WBC 11.55 H (4.8-10.8) K/uL Hgb 11.3 L (14.0-18.0) g/dL Hct 34.3 L (42-52) % Plt Count 190 (130-400) K/uL BMP 02/28/22 06:07 Sodium 136 Potassium 4.5 Chloride 104 Carbon Dioxide 26 BUN 12 Creatinine 0.87 Glucose 159 H Calcium 8.5
[2022-02-28] MEDS: carvediloL 12.5 MG TAB PO SCH (21:08)
[2022-02-28] MEDS: amLODIPine BESYLATE 5 MG TAB PO SCH (21:08)
[2022-02-28] MEDS: DOCUSATE SODIUM/SENNA 50/8.6MG TAB PO SCH (21:08)
[2022-02-28] MEDS: SIMVASTATIN 20 MG TAB PO SCH (21:46)
[2022-03-01] MEDS: oxyCODONE HCL IR 5 MG TAB (IMMEDIATE RELEASE) PO PRN ×5 (03:40→22:18)
[2022-03-01] MEDS: POLYETHYLENE (MIRALAX) 17 GM PACK PO SCH ×4 (05:25→23:51)
[2022-03-01 07:26] LABS: Hematocrit (blood only) 32.7 % (42-52); Hemoglobin 10.8 g/dL (14.0-18.0); Mean Corpuscular Volume 87.9 fL (80-100); Mean Platelet Volume 9.4 fL (7.4-10.4); Platelet Count 168 K/uL (130-400); RDW Standard Deviation 48.1 fL (36.4-46.3); Red Blood Count 3.72 M/uL (4.7-6.1); White Blood Count 9.15 K/uL (4.8-10.8)
[2022-03-01 08:12] LABS: Calcium 8.6 mg/dl (8.5-10.1); Creatinine Clr Calc Pharmacy 95.5 ml/min; Est GFR (African American) 99.5 ml/min; Est GFR (Non-African American) 85.8 ml/min; Potassium 4.3 mmol/L (3.5-5.1)
[2022-03-01] MEDS ORDERED: INSULIN HUMAN NPH SC ONE (08:30)
[2022-03-01] MEDS: METHOCARBAMOL 500 MG TABLET PO SCH ×2 (08:43→20:55)
[2022-03-01] MEDS: MONTELUKAST SODIUM 10 MG TABLET PO SCH (08:43)
[2022-03-01] MEDS: ASPIRIN 81 MG ECTAB PO SCH (08:43)
[2022-03-01] MEDS: TAMSULOSIN HCL 0.4 MG CAP PO SCH (08:44)
[2022-03-01] MEDS: INSULIN ASPART PER UNIT SC SCH ×4 (08:55→20:56)
--- NOTE | 2022-03-01 12:43 | Pharmacy Report ---
Pharmacy Glycemic Short Note 2 - Date of Service March 01, 2022 - Glycemic Short BSG Results (Last 24 hours): 02/28/22 02/28/22 03/01/22 17:01 20:46 06:37 Glucose 143 H POC Glucose 164 H 135 H 03/01/22 03/01/22 08:10 12:02 Glucose POC Glucose 152 H 152 H OUTPATIENT ANTIDIABETIC REGIMEN: * Metformin 1000mg Q AM + 500mg Q PM * A1c = 7.5% 02/06/22 ASSESSMENT: 03/01 * Patient's BSGs reasonably controlled yesterday with 20 units of NPH, ranging from 135-198 mg/dL * Decreased NPH to 10 units this morning, consider d/c tomorrow if BSGs stable * Continuing current novolog parameters 02/27 * Reasonably well controlled type 2 diabetic admitted for neurogenic claudication due to lumbar spinal stenosis. Patient is now s/p lumbar decompression/fusion with removal of hardware. * It appears patient was given dexamethasone IV by Anesthesia trinity-op due to patient charges, BSG did climb post-op. * Will provide wt based NPH dose x 1 to cover steroid induced hyperglycemia. Will utilize weight-based moderate stress Novolog doses initially. Doses will need to be reassessed tomorrow AM as steroid effects likely to have dissipated at that time. Could possibly resume metformin if tolerating diet and no SOLA present. PLAN FOR INPATIENT GLYCEMIC CONTROL: * Hold outpatient oral diabetes medications (metformin) * Basal insulin * NPH 10 units SQ x 1 * Bolus insulin * NovoLog per scale ACHS or Q6hrs while NPO * Goal Range: Low 110 mg/dL - High 140 mg/dL * Correction Factor: 20 mg/dL/unit * Nutritional / Prandial insulin per carb ratio of 1 unit per 7 grams CHO consumed
--- NOTE | 2022-03-01 13:22 | Orthopedic Progress Note ---
Date of Service March 01, 2022 Assessment & Plan (1) Neurogenic claudication due to lumbar spinal stenosis: Plan: This time is progressing well. He does have a component of left groin pain. Is a start up in nature and does get better with ambulation. I am concerned he may be developing left hip arthritis. I explained this to the patient. This time I anticipate discharge home this weekend we will follow him up in the office and work-up his left hip at that time. Admission and Anticipated Discharge Date Admission Date: February 27, 2022 Subjective Back pain is controlled leg pain is markedly improved. Struggling with some left groin pain. Physical Exam Physical Exam: On exam he is in the chair at the bedside. Is good strength testing. He does have a positive logroll on the left. Results & Data ([facility]) Vital Signs (Past 12 Hours) Vital Signs Temp Pulse Resp BP Pulse Ox 03/01/22 07:08 37.2 C 75 18 138/84 93
--- NOTE | 2022-03-01 17:40 | Hospitalist Progress Note ---
Date of Service March 01, 2022 Assessment & Plan (1) Neurogenic claudication due to lumbar spinal stenosis: (2) CAD (coronary artery disease): (3) Diabetes mellitus, type 2: Plan: Patient is a 66 yr male who has significant past medical history of CAD with history of coronary stenting in 2016, HTN, HLD, COPD, EDIL noncompliant with CPAP, T2DM, psoriasis who presents for elective lumbar procedure by Dr. Kumar. Lumbar spinal stenosis with neurogenic claudication H/O previous back surgery S/P 1. removal of posterior segmental instrumentation L3-S1. #2 exploration of fusion L3-S1. #3 lumbar decompressive bilateral medial facetectomies and foraminotomies L1-L2 and L2-L3. #4 posterior spinal fusion L2-L3. #5 patient posterior instrumentation L2-L4. #6 interbody fusion L2-L3. #7 placement of Spira 13 x 26 mm cage at L2-L3. #8 placement locally harvested morselized autograft in the posterior gutters. Midline placement I factor combined with V toss in interbody space and posterior. Postoperative acute blood loss anemia --Appreciate Orthopedics Input Pain control, Incentive Spirometry Continue Wound Care, PT/OT Monitor CBC Bowel regimen to prevent constipation Hb 10.8 today CAD History of PCI x3 in 2016 Last stress echo 01/2021 revealed EF 61% with no inducible ischemia Continue ASA, statin, carvedilol HTN Continue amlodipine and carvedilol Monitor DM II Last A1c 7.5 02/06/2022 Hold metformin Glycemic pharmacy consulted, appreciate their management DVT Px: Per orthopedics Code Status FULL CODE Disposition Per Primary Team Admission and Anticipated Discharge Date Admission Date: February 27, 2022 Subjective Patient is seen and examined at bedside States having left groin/ leg pain Back pain at surgical site is controlled No new complaints Review of Systems Review of Systems: All systems reviewed & are unremarkable except as noted in Subjective Physical Exam Physical Exam: Physical Exam: Vitals signs as noted above General Appearance:Obese, No apparent distress Head: normocephalic, Atraumatic Eyes: normal inspection, EOMI Neck: supple, Trachea midline Respiratory/Chest: Normal breath sounds, CTA, No accessory muscle use Cardiovascular: S1, S2, No murmur Abdomen/GI:Soft, Non tender, Bowel sounds present Back: Surgical site, +drain Extremities/Musculoskeletal:normal inspection, 1+ B/L LE Edema Neurologic/Psych:AAOX3, grossly no focal neurological deficits Skin: normal color, warm Results & Data Results & Data ([facility]) Vital Signs (Past 12 Hours) Vital Signs Temp Pulse Resp BP Pulse Ox 03/01/22 15:01 36.8 C 73 20 145/71 H 92 03/01/22 07:08 37.2 C 75 18 138/84 93 Laboratory Results Short CBC 03/01/22 Range/Units 06:37 WBC 9.15 (4.8-10.8) K/uL Hgb 10.8 L (14.0-18.0) g/dL Hct 32.7 L (42-52) % Plt Count 168 (130-400) K/uL BMP 03/01/22 06:37 Sodium 135 L Potassium 4.3 Chloride 100 Carbon Dioxide 28 BUN 13 Creatinine 0.93 Glucose 143 H Calcium 8.6
[2022-03-01] MEDS: carvediloL 12.5 MG TAB PO SCH (20:55)
[2022-03-01] MEDS: amLODIPine BESYLATE 5 MG TAB PO SCH (20:55)
[2022-03-01] MEDS: DOCUSATE SODIUM/SENNA 50/8.6MG TAB PO SCH (20:55)
[2022-03-01] MEDS: SIMVASTATIN 20 MG TAB PO SCH (20:56)
[2022-03-02] MEDS: oxyCODONE HCL IR 5 MG TAB (IMMEDIATE RELEASE) PO PRN ×3 (02:52→15:19)
[2022-03-02] MEDS: POLYETHYLENE (MIRALAX) 17 GM PACK PO SCH ×2 (05:52→12:49)
[2022-03-02] MEDS: TAMSULOSIN HCL 0.4 MG CAP PO SCH (08:47)
[2022-03-02] MEDS: ASPIRIN 81 MG ECTAB PO SCH (08:47)
[2022-03-02] MEDS: METHOCARBAMOL 500 MG TABLET PO SCH (08:47)
[2022-03-02] MEDS: MONTELUKAST SODIUM 10 MG TABLET PO SCH (08:47)
[2022-03-02] MEDS: INSULIN ASPART PER UNIT SC SCH ×2 (08:49→12:49)
[2022-03-02] MEDS ORDERED: INSULIN HUMAN NPH SC SCH (09:00)
--- NOTE | 2022-03-02 11:32 | Discharge Summary ---
Date of Service March 02, 2022 Admission HPI Per Admitting Provider This is a 65-year-old male presents with chronic persistent back and leg pain. Failing course of nonoperative care is here for surgical invention. Principal Diagnosis Lumbar spinal stenosis with neurogenic claudication Discharge Data Allergies Allergy/AdvReac Type Severity Reaction Status Date / Time atorvastatin Allergy Unknown Per PCP Verified 02/27/22 06:59 records ibuprofen Allergy Unknown Facial Verified 02/27/22 06:59 swelling Iodinated Contrast Media Allergy Unknown Facial Verified 02/27/22 06:59 swelling lisinopril Allergy Unknown Hives Verified 02/27/22 06:59 Consultations 02/27/22 12:39 Consult Hospitalist Routine Procedures Performed Operation Date: 02/27/22 07:45 Actual Procedures p L2-L4 Decompression Fusion, Spinal Cord Morning(Not Applicable) - Marques Kumar DO s L3-S1 Hardware Removal (Not Applicable) - Marques Kumar DO Ordered Studies 02/27/22 07:45 FL lumbar spine 2-3V Routine Hospital Course (1) Lumbar stenosis with neurogenic claudication: Patient underwent multilevel lumbar decompression fusion tolerated this well was taken to the orthopedic floor postoperatively. Postop day 1 he was up and ambulating progressed to postop day 2 on postop day 3 pain was well controlled excellent strength testing. Separately discharged home. Discharge orders instructions found chart for further review. Total Time Total Time Spent Total Time Spent (In Minutes): 20 minutes Discharge Plan Discharge Items Patient Disposition: Home - Self-Care Reason For Visit: Unspecified Thoracic, Thoracolumber and Discharge Diagnosis: Lumbar spinal stenosis with neurogenic claudication Activity: Per Instructions section Non-emergency contact: Primary Care Provider Call non-emergency contact if: you have any medication questions Follow-up/Referrals: Dat Oh DO [Primary Care Provider] - Diet: Regular Addtl Attending Provider Instructions: ACTIVITY RECOMMENDATIONS: SELF CARE INSTRUCTIONS AFTER THORACIC/LUMBAR FUSIONS 1. You may walk to your tolerance. It is good exercise for your legs and back. Expect some back and intermittent leg aches and pains. 2. You may perform "counter-top" level activities (make a sandwich, jamshid with a project, etc.). 3. No bending or lifting of more than 10 pounds or back twisting of any nature (roll like a log when turning in bed). 4. You may ride in a car for 20-30 minutes at a time. No driving until after your first visit with your doctor. 5. Frequent changes of position and restricting sitting to 30 minutes at a time will help limit the amount of back spasms and stiffness you may experience. 6. You may discontinue the use of ambulatory aids (cane, crutches, etc.) once your strength and confidence allow. 7. You may marketing agent the shower and let water strike your incision when you arrive home at least once daily. Do not take a tub bath, sit in a hot tub or go into a swimming pool until after your first recheck in the office. SPECIAL CARE INSTRUCTIONS: VERY IMPORTANT TO READ AND REVIEW A. Your surgical incision has been closed with a cosmetic suture under the skin that will dissolve in about 6 weeks. In 14 days, you can use a pair of clean scissors and cut the suture that is left outside of the skin at the ends of your incision. 1. The small skin tapes can be removed 7 days after surgery if they have not fallen off by that point. 2. You may keep the wound open to air as much as possible to promote healing after post-op day number 5 unless told otherwise by your doctor. 3. If you think the wound looks like it is becoming infected (redness or worsening drainage) and/or you are experiencing fever, chill or worsening back pain and muscle spasms, contact the office so that we may evaluate you as soon as possible. B. Complications are uncommon, but please contact us if you have any signs or symptoms of: 1. wound infection (fever higher than 102.5 degrees F, redness, separation of wound, drainage, or increasing pain from the incision) 2. blood clots in legs (pain, swelling, redness and warmth in legs) 3. urinary tract infection (fever higher than 102.5 degrees F, burning upon urination or increased frequency of urination) 4. nerve problems (inability to walk on your toes or heels, numbness, loss of bowel or bladder control) 5. any other symptoms that concern you C. Please call the office at if you have any concerns or questions about your operation or recovery. D. No smoking! Smoking drastically decreases the chance of a solid fusion. E. Do not take any anti-inflammatory medications (Indocin, Advil, Motrin, Aspirin, Naprosyn, etc.) as these may inhibit the chance of a solid fusion. Tylenol is okay to take for pain. MANAGING PAIN AFTER SPINAL SURGERY 1. Narcotic medication is intended for short-term use and will be provided for surgical pain. Surgical pain usually lasts for a period of 4-6 weeks. Narcotic medication includes Percocet, Vicodin, Darvocet, Tylenol #3 or Lortab. 2. Longer-term pain is more appropriately treated with non-narcotic medication such as Tylenol ES. 3. Muscle spasm is not appropriately treated with narcotics. Muscle relaxers such as Soma, Flexeril or Skelaxin can be used along with Tylenol ES. 4. Remember that we all live with some "aches and pains". This is not unusual or uncommon after an injury or as we get older. a. Back pain is expected and may include muscle spasms for 4 to 6 weeks after surgery. The pain should gradually improve. If the pain worsens for no apparent reason, please contact the office. b. Intermittent leg pain may also be experienced and should not be concerned about unless it worsens for no apparent reason. If so, please contact the office. 5. We will provide appropriate medication within the normal guidelines of their prescribed use. We will also be very cautious and aware of potential abuse and extended duration of patients' medication needs. a. Pain medications are for your comfort and to assist with sleep and rest so that the tissue can heal. They are not provided in order to return to normal activity and should not be used through the day. To do so or worsening pain at night can result from ongoing tissue damage and development of tolerance to the prescribed medicine. 6. Please allow 2-3 days to process refills. Prescriptions will not be mailed but must be picked up at the office. FOLLOW UP VISIT: Keep your scheduled follow-up appointment. Any questions, please call the office at . Pending Studies at Discharge: No Stand-Alone Forms: [employer], Smoking Cessation Medications and DC Order Prescriptions: New oxycodone 5 mg tablet 5 mg PO Q6H PRN (Reason: pain, severe) Qty: 30 RF: 0 tramadol 50 mg tablet 50 mg PO Q6H PRN (Reason: pain, moderate) Qty: 30 RF: 0 Continued tamsulosin 0.4 mg capsule 0.4 mg PO DAILY Qty: 90 RF: 3 sildenafil 100 mg tablet 100 mg PO DAILY PRN (Reason: sexual activity) Qty: 20 RF: 11 methocarbamol 500 mg Tablet 500 mg PO BID RF: 0 metformin 500 mg Tablet 500 - 1,000 mg PO BID RF: 0 carvedilol 12.5 mg Tablet 12.5 mg PO HS RF: 0 aspirin 81 mg Tablet,Delayed Release (Dr/Ec) 81 mg PO QAM RF: 0 amlodipine 10 mg Tablet 10 mg PO HS RF: 0 simvastatin 20 mg Tablet 20 mg PO HS RF: 0 montelukast 10 mg Tablet 10 mg PO QAM RF: 0 nitroglycerin [Nitrostat] 0.4 mg Tablet, Sublingual 0.4 mg sublingual UD PRN (Reason: Chest Pain) RF: 0 acetaminophen 500 mg Tablet 1,500 mg PO Q6H PRN (Reason: Pain) RF: 0 budesonide-formoterol [Symbicort] 160-4.5 mcg/actuation Hfa Aerosol Inhaler 2 puff INHALATION BID PRN (Reason: Wheezing) RF: 0 Discharge Orders: Discharge Order (Routine); Ordered 03/02/22 Ordered By: Marques Kumar Admission Data Admit Date/Time: 02/27/22 10:23 Attending Provider: Marques Kumar Admit Provider: Marques Kumar Primary Care Provider: Dat Oh Other Providers: Michael Salinas
--- NOTE | 2022-03-02 13:58 | Hospitalist Progress Note ---
Date of Service March 02, 2022 Assessment & Plan (1) Neurogenic claudication due to lumbar spinal stenosis: (2) CAD (coronary artery disease): (3) Diabetes mellitus, type 2: Plan: Patient is a 66 yr male who has significant past medical history of CAD with history of coronary stenting in 2016, HTN, HLD, COPD, EDIL noncompliant with CPAP, T2DM, psoriasis who presents for elective lumbar procedure by Dr. Kumar. Lumbar spinal stenosis with neurogenic claudication H/O previous back surgery S/P 1. removal of posterior segmental instrumentation L3-S1. #2 exploration of fusion L3-S1. #3 lumbar decompressive bilateral medial facetectomies and foraminotomies L1-L2 and L2-L3. #4 posterior spinal fusion L2-L3. #5 patient posterior instrumentation L2-L4. #6 interbody fusion L2-L3. #7 placement of Spira 13 x 26 mm cage at L2-L3. #8 placement locally harvested morselized autograft in the posterior gutters. Midline placement I factor combined with V toss in interbody space and posterior. Postoperative acute blood loss anemia --Appreciate Orthopedics Input Pain control, Incentive Spirometry Continue Wound Care, PT/OT Monitor CBC Bowel regimen to prevent constipation Hb 10.8 today No indication for blood transfusion Advised to follow up with PCP upon discharge CAD History of PCI x3 in 2016 Last stress echo 01/2021 revealed EF 61% with no inducible ischemia Continue ASA, statin, carvedilol HTN Continue amlodipine and carvedilol Monitor DM II Last A1c 7.5 02/06/2022 Hold metformin Glycemic pharmacy consulted, appreciate their management DVT Px: Per orthopedics Code Status FULL CODE Disposition Per Primary Team Admission and Anticipated Discharge Date Admission Date: February 27, 2022 Subjective Patient is seen and examined at bedside left groin/ leg pain much improved Back pain at surgical site improving as well Denies chest pain, dizziness, nausea, abd pain Review of Systems Review of Systems: All systems reviewed & are unremarkable except as noted in Subjective Physical Exam Physical Exam: Physical Exam: Vitals signs as noted above General Appearance:Obese, No apparent distress Head: normocephalic, Atraumatic Eyes: normal inspection, EOMI Neck: supple, Trachea midline Respiratory/Chest: Normal breath sounds, CTA, No accessory muscle use Cardiovascular: S1, S2, No murmur Abdomen/GI:Soft, Non tender, Bowel sounds present Back: Surgical site, +drain Extremities/Musculoskeletal:normal inspection, 1+ B/L LE Edema Neurologic/Psych:AAOX3, grossly no focal neurological deficits Skin: normal color, warm Results & Data Results & Data ([facility]) Vital Signs (Past 12 Hours) Vital Signs Temp Pulse Resp BP BP Pulse Ox 03/02/22 12:51 37.1 C 72 18 144/84 H 137/72 95 03/02/22 07:04 37.1 C 72 18 144/84 H 95
== END 2022-03-02 15:57 | disposition home or self-care (01) | DRG 454 ==
LOC: ASU 06:02 → 3N 10:23